=== PATIENT | male | born 1940 | race Caucasian/White ===

== ENCOUNTER 2019-09-06 09:38 | Inpatient (IN) | payer MEDICARE, MEDICAID ==
--- NOTE | 2019-09-06 10:49 | RAD ---
Portable chest: HISTORY: Chest pain COMPARISON: none FINDINGS: Lung martinez are clear. Heart and mediastinum appear unremarkable. Vascularity is normal. C alcified right hilar lymph nodes. Calcified granuloma in the peripheral right lung. Visualized osseous structures unremarkable. IMPRESSION: No acute finding
[2019-09-06 10:53] LABS: #Basophils 0.1 thou/uL (0.0-0.2); #Eosinphils 0.3 thou/uL (0.0-0.7); #Lymphocytes 3.3 thou/uL (1.20-3.40); #Neutrophils 6.3 thou/uL (1.40-6.50); %Eosinophils 2.4 % (0.0-10.0); %Lymphocytes 30.2 % (21.0-51.0); %Monocytes 9.2 % (0.0-10.0); %Neutrophils 57.1 % (42.0-75.0); Hemoglobin 11.7 g/dL (14.0-18.0); Mean Corpuscular Volume 90.3 fL (78.0-98.0); Mean Platelet Volume 7.2 fL (7.4-10.4); Platelet Count 318 thou/uL (130-400); RBC Distribution Width 12.9 % (11.5-14.5); Red Blood Cell (RBC) Count 4.18 mill/uL (4.70-6.10)
[2019-09-06 11:15] LABS: ALT (SGPT) 8 U/L (8-55); AST (SGOT) 19 U/L (5-34); Albumin 4.5 g/dL (3.4-4.8); Alkaline Phosphatase 77 U/L (40-110); Anion Gap 15 mmol/L (10-20); BUN (Urea Nitrogen) 14 mg/dL (8.4-25.7); Bilirubin, Total 0.5 mg/dL (0.2-1.2); Calc. Creatinine Clearance 0 mL/min (70-130); Calcium 9.4 mg/dL (7.8-10.44); Carbon Dioxide 22 mmol/L (23-31); Chloride 107 mmol/L (98-107); Estimated GFR-MDRD 57; Glucose 98 mg/dL (83-110); Lipase 7 U/L (8-78); Magnesium 2.6 mg/dL (1.6-2.6); Potassium 4.3 mmol/L (3.5-5.1); Protein, Total 7.5 g/dL (5.8-8.1); Sodium 140 mmol/L (136-145)
[2019-09-06] MEDS ORDERED: Aspirin Chewable 81 MG TAB ONE (12:44)
[2019-09-06 13:03] LABS: Bilirubin Negative (Negative); Blood, Urine Negative (Negative); Clarity Clear (Clear); Glucose, Urine (Dipstick) Normal (Negative); Leukocyte Negative Leu/uL (Negative); Nitrite Negative (Negative); Protein, Urine (Dipstick) 10 mg/dL (Neg-Trace); Urobilinogen Normal mg/dL (Less than 2)
[2019-09-06 14:32] LABS: Troponin I Less than 0.010 ng/mL (< 0.028)
[2019-09-06] MEDS ORDERED: Enoxaparin Sodium 80 MG/0.8 ML SYRINGE SC SCH (15:00)
[2019-09-06 17:23] LABS: Troponin I Less than 0.010 ng/mL (< 0.028)
[2019-09-06] MEDS: Pantoprazole 40 MG VIAL IVP SCH (20:33)
--- NOTE | 2019-09-06 21:03 | HP ---
CHIEF COMPLAINT: Dysphagia. HISTORY OF PRESENT ILLNESS: This patient is an 79-year-old male with a 2-month history of dysphagia. He has seen Dr. Westbrook as an outpatient. There was anticipation that he would undergo endoscopy on the . The patient has stopped his Plavix today in anticipation of that. He continued to have worsening symptoms, was unable to take his medications last night. Therefore, he made a phone call today. Dr. Sanchez was covering for Dr. Westbrook and apparently, there might have been some miscommunication. The patient was under the impression that he was told to come to the emergency department and his endoscopy could be performed right away. Apparently, ER doctor talked to Dr. Sanchez and he indicated that was not the case, that the plan was for him to continue to follow up as an outpatient as previously planned on . Nonetheless, on arrival, the patient was found to be in atrial fibrillation. He states that he has lost significant amount of weight related to his dysphagia. In fact, he was seen on the in Dr. Westbrook's office and since then he has lost another 11 pounds. The patient does report that he has had some discomfort in the left chest just below the left breast that seems to be worse when he is trying to swallow, that seems to be better here today. He is unaware of any palpitations or other chest pains or significant shortness of breath. REVIEW OF SYSTEMS: Other than the weight loss, all other systems were reviewed and all pertinent positives and negatives noted in the HPI. PAST MEDICAL HISTORY: Notable for coronary artery disease, followed by Dr. Nick Ferrari. He sees him at least every 6 months. He has peripheral arterial disease and he has a heart murmur, hypertension, and hyperlipidemia. PAST SURGICAL HISTORY: Peripheral stents x5. Apparently had an intravascular aortic aneurysm repair performed at the iliac bifurcation area. FAMILY HISTORY: Mother of cancer. She apparently had several different types over the years and father had advanced dementia. SOCIAL HISTORY: The patient previously smoked a pack and half cigarettes per day. Quit in 2008. Still has an occasional beer. Denies drugs. He is single, but has a female partner. He is full code and his partner, Mahnaz would be his surrogate decision maker should that become necessary. ALLERGIES: NONE. MEDICATIONS: 1. Amlodipine 10 mg daily. 2. Benazepril 10 mg daily. 3. Plavix 75 mg daily. 4. Dexilant 30 mg daily. 5. Ezetimibe 10 mg daily. 6. Atorvastatin 80 mg daily. 7. Terbinafine 250 mg daily. 8. Aspirin 81 mg daily. 9. [place]-3 fish oil one tablet p.o. b.i.d. PHYSICAL EXAMINATION: VITAL SIGNS: BP 125/78, pulse 65, respirations 18, temperature 97.9, O2 saturation 95% on room air. GENERAL APPEARANCE: Age-appropriate male, in no distress. He is awake, alert, oriented, pleasant, cooperative. HEART: Regular rate and rhythm. No murmurs, gallops, or rubs. LUNGS: Clear to auscultation bilaterally. Good chest wall expansion or exchange. ABDOMEN: Soft, nontender, and nondistended. Positive bowel sounds. No masses. No organomegaly. EXTREMITIES: No cyanosis, clubbing, or edema. PSYCHIATRIC: Normal affect and behavior. NEUROLOGIC: Spontaneous movement in all extremities. Cranial nerves intact. Cognitively intact. LABORATORY DATA: White count 11.0, hemoglobin 11.7, platelets 318. Sodium 140, potassium 4.3, chloride 107, CO2 of 22, BUN 14, creatinine 1.23, glucose 98, calcium 9.4, magnesium 2.6, total bilirubin 0.5, AST 19, ALT 8, and alkaline phosphatase 77. Troponin 0.01, subsequent 0.01. Albumin 4.5, lipase 7. TSH 0.8365. Urinalysis negative. Chest x-ray is negative. EKG shows atrial fibrillation with controlled ventricular response. IMPRESSION AND PLAN: 1. New onset atrial fibrillation in a patient who is completely asymptomatic and unaware. He appears to have good rate control and it is unclear when his onset might have been. Therefore, we will go ahead and give him some Lovenox now. I will not start him on any longer-acting anticoagulation in light of the concern for the dysphagia and weight loss. 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 Ferrari. 2. Dysphagia with weight loss. The patient likely does need endoscopy. The plan was to do this on and that may still be a reasonable plan. However, at this point, the patient need to be on anticoagulation, therefore that may necessitate expediting the endoscopy so that he can be released to be on appropriate anticoagulation for the atrial fibrillation. GI is consulted. We will keep him on PPI and again we will need to coordinate this with Cardiology and GI. 3. Hypertension. Continue usual home medications. 4. Hyperlipidemia. Continue with his home medications. Job ID: [id number]
--- NOTE | 2019-09-07 00:44 | CON ---
DATE OF CONSULTATION: 09/06/2019 REASON FOR CONSULTATION: Dysphagia, weight loss. HISTORY OF PRESENT ILLNESS: Mr. Shukri Maddox is a very pleasant 79-year-old male with history of hypertension, hyperlipidemia. The patient is known to have peripheral vascular disease and has seen Dr. Ferrari in the past. He has had bilateral lower extremity stent placement. He is on Plavix. He also tells me he has had an abdominal aortic aneurysm and has had a stent placement by Dr. Ferrari in the past. The patient has no history of coronary artery disease. He tells me his heart was checked by Dr. Ferrari and there is no history of any coronary artery disease. The patient developed dysphagia approximately 2 months ago. The dysphagia is to solid food mostly. He also has some painful swallowing when the food gets stuck in the esophagus. At that time, he drank water to make it go down. At that time, the water does not go down, it keeps coming up. He has had some regurgitation when the food gets stuck. To begin with, he has difficulty swallowing meat and bread. Subsequently he has some difficulty swallowing all kind of solid food. Most recently, his dysphagia slowly progressed where he cannot even swallow at times water. The patient called me this morning saying that he is having increase in difficulty swallowing and that time he cannot even swallow pills and not able to drink water. He was advised to come to the ER. The patient used to weigh around 203 pounds 3 or 4 months ago. Now his weight is down to 170 pounds in the ER. There is no history of fever. No history of hematochezia or any melena. Bowel movements are fairly regular. The patient tells me an episode of coughing up blood and subsequently also threw up some blood 3 months ago. He called his primary care doctor, Dr. Pina. He was advised to go to the ER, but the patient did not go to the ER. The patient had no recurrence of symptoms afterwards. He has no relevant history. ALLERGIES: NONE. SOCIAL HISTORY: He is a former smoker. Quit smoking, I believe, about 12 years ago. Drinks alcohol socially, mostly beer. Does not drink or use hard liquor. No history of drug abuse. MEDICAL ILLNESSES: 1. Hypertension. 2. Hyperlipidemia. 3. Peripheral vascular disease. 4. History of AAA, status post stent placement. 5. No history of any COPD. 6. No diabetes. 7. No TIA. PAST SURGICAL HISTORY: No major surgeries for the peripheral artery stent placement. FAMILY HISTORY: Mother had some cancer, site is unknown. Otherwise, family history is totally unremarkable. MEDICATION LIST: Reviewed. REVIEW OF SYSTEMS: 10 point system review; CONSTITUTIONAL: History of weight loss over the last 3 months. His energy level is good. Does not have any fever or chills. His exercise tolerance is pretty good except for intermittent claudication. Usually it is after walking 100 yards, he started having some pain in the calf muscles. HEAD: No chronic headache. No dizziness. EYES: No diplopia. No impaired vision. EARS: No hearing loss. NOSE: No nosebleed. THROAT: No sore throat. NECK: No stiffness or any limitation of movement. LUNGS: No chronic coughing, hemoptysis, dyspnea. CARDIOVASCULAR SYSTEM: No palpitation. No chest pain. No dyspnea, orthopnea, PND. GI: Dysphagia, weight loss. History of 1 episode of hematemesis, I believe, 3 months ago and was advised to go to the ER, but he did not go to the ER. : No dysuria, hematuria. MUSCULOSKELETAL/NEUROENDOCRINE: Nonrelevant. HEMATOLOGICAL: Nonrelevant. PHYSICAL EXAMINATION: GENERAL: He appears very comfortable. He is in no distress. He is awake, alert, and communicative. VITAL SIGNS: Stable. Pulse is 76 and irregular. The EKG done in the ER showed atrial fibrillation which is new onset. Temperature 97.7 degrees Fahrenheit, pulse is 72, and blood pressure 145/67. HEENT: Conjunctivae clear. NECK: Supple. No adenitis or thyromegaly noted. CARDIOVASCULAR SYSTEM: First and second heart sounds heard. LUNGS: Clear to auscultation. ABDOMEN: Soft. Abdomen is nontender. No organomegaly. No masses. Bowel sounds normal. EXTREMITIES: Reveal no edema. LABORATORY DATA: CBC; WBC 11,000; hemoglobin 11.7; hematocrit 37.8; MCV 90.3; platelet count 318,000; polymorphs 57; lymphocytes 30. Chemistries; chem 7 is normal, BUN is 14, creatinine 1.23, glucose 98, calcium 9.4, magnesium 2.6, bilirubin 0.5, AST 19, ALT 8, alkaline phosphatase 77, albumin is 4.5, globulin 3, lipase 7, troponin 0.8365. EKG; atrial fibrillation with slow rate. No acute ischemic changes. CLINICAL IMPRESSION: 1. An 79-year-old male with dysphagia, weight loss. The symptoms started approximately 2 months ago. The symptoms are getting progressively worse. He also has history of weight loss. He had 1 episode of hematemesis over 3 months ago, but he did not seek any medical advice at that time. The patient most likely has a malignancy to explain the dysphagia and weight loss. It is also possible to have benign stricture. However, the weight loss is somewhat worrisome. 2. Hypertension. 3. Hyperlipidemia. 4. Peripheral vascular disease, status post stent placement. 5. History of abdominal aortic aneurysm. 6. New-onset atrial fibrillation. RECOMMENDATIONS: 1. Full liquid diet. 2. IV fluids. 3. We will hold on the Plavix for the next 3 days. My plan was for an EGD today but unfortunately he has been on Plavix until yesterday. We will hold on the Plavix and hopefully an EGD can be done in the next [address] Westbrook is primary marketing communications associate and let Dr. Westbrook know about inpatient stay. Dr. Westbrook will assume care from tomorrow. Job ID: [id number]
[2019-09-07] MEDS: Lisinopril 10 MG TAB PO SCH (08:46)
[2019-09-07] MEDS: Amlodipine 10 MG TAB PO SCH (08:46)
[2019-09-07] MEDS: Pantoprazole 40 MG VIAL IVP SCH ×2 (08:55→20:58)
--- NOTE | 2019-09-07 19:05 | PRG ---
DATE OF SERVICE: 09/07/2019 SUBJECTIVE: Mr. Maddox is tolerating liquids. OBJECTIVE: VITAL SIGNS: Temperature is 98, blood pressure 112/57. ABDOMEN: Nontender. LABORATORY DATA: None today. ASSESSMENT: Dysphagia and weight loss. He had outpatient endoscopy and colonoscopy scheduled for this , he came in as he was having more weight loss and seems that concerns about atrial fibrillation that are being addressed now and the family indicates this is stable as do the nurses. RECOMMENDATIONS: Continue to hold Plavix. If he stays in the hospital, we can perform his EGD and colonoscopy on Saturday when he has been off the Plavix for 3 days. If they let him to go home tomorrow in someway, he is scheduled as an outpatient on at the office and we can keep that scheduled as well. Dr. Westbrook's will be back tomorrow. Job ID: [id number]
[2019-09-07] MEDS ORDERED: Sodium Chloride 0.9% 10 ML ONE (20:21)
[2019-09-07] MEDS: Enoxaparin Sodium 80 MG/0.8 ML SYRINGE SC SCH (20:58)
--- NOTE | 2019-09-07 21:40 | PDOC.HOSPP ---
- Subjective Subjective: Doing well. No complaints. - Objective Vital Signs & Weight: Vital Signs (12 hours) Temp Pulse Resp BP Pulse Ox 09/07/19 20:00 97.8 F 67 20 120/67 97 09/07/19 15:07 97.6 F 71 19 125/57 L 99 09/07/19 11:03 96.6 F L 70 17 140/77 97 Weight Admit Weight 175 lb 8.96 oz Weight 175 lb 8.96 oz I&O: 09/06/19 09/07/19 09/08/19 06:59 06:59 06:59 Intake Total 240 1020 Output Total 0 600 Balance 240 420 Result Diagrams: 09/06/19 10:32 09/06/19 10:32 Hospitalist ROS - Medication Medications: Active Medications Generic Name Dose Route Start Last Admin Trade Name Freq PRN Reason Stop Dose Admin Amlodipine Besylate 10 mg 09/07/19 09:00 09/07/19 08:46 Norvasc PO Not Given DAILY SANDOR Enoxaparin Sodium 80 mg 09/07/19 21:00 09/07/19 20:58 Lovenox SC 80 mg 0900,2100 SANDOR Administration Lisinopril 10 mg 09/07/19 09:00 09/07/19 08:46 Zestril PO Not Given DAILY SANDOR Pantoprazole Sodium 40 mg 09/06/19 21:00 09/07/19 20:58 Protonix IVP 40 mg Q12HR SANDOR Administration - Exam General Appearance: NAD, awake alert Neck: supple, symmetric, no JVD, no thyromegaly, no lymphadenopathy, no carotid bruit Heart: RRR, no murmur, no gallops, no rubs, normal peripheral pulses Respiratory: CTAB, no wheezes, no rales, no ronchi, normal chest expansion, no tachypnea, normal percussion Gastrointestinal: soft, non-tender, non-distended, normal bowel sounds, no palpable masses, no hepatomegaly, no splenomegaly, no bruit Extremities: no cyanosis, no clubbing, no edema Skin: normal turgor, no lesions, no rashes Musculoskeletal: normal tone, normal strength, no muscle wasting Psychiatric: normal affect, normal behavior, A&O x 3 Hosp A/P (1) Atrial fibrillation Code(s): I48.91 - UNSPECIFIED ATRIAL FIBRILLATION Status: Acute (2) Esophageal dysphagia Code(s): R13.10 - DYSPHAGIA, UNSPECIFIED Status: Acute (3) PAD (peripheral artery disease) Code(s): I73.9 - PERIPHERAL VASCULAR DISEASE, UNSPECIFIED Status: Acute - Plan Doing ok. Full liquid diet per GI. Continue Lovenox. GI following. Discussed with Dr. Ferrari. Has had a hearth cath. No indication for additional work up of the afib. Good rate control. Could consider OP Lovenox and endoscopy as OP. Otherwise, will have the scope on Satn. Once the scope is done, he can go to [facility] barring a contra-indicaiton on scope.
[2019-09-08] MEDS ORDERED: Sodium Chloride 0.9% 10 ML ONE (07:34)
[2019-09-08] MEDS: Enoxaparin Sodium 80 MG/0.8 ML SYRINGE SC SCH ×2 (08:51→20:20)
[2019-09-08] MEDS: Lisinopril 10 MG TAB PO SCH (08:52)
[2019-09-08] MEDS: Amlodipine 10 MG TAB PO SCH (08:52)
[2019-09-08] MEDS: Pantoprazole 40 MG VIAL IVP SCH ×2 (08:52→20:20)
--- NOTE | 2019-09-08 12:53 | PRG ---
DATE OF SERVICE: 09/08/2019 SUBJECTIVE: Mr. Maddox is doing well. Continues to complain of dysphagia. He is on a liquid diet today. No other new events. OBJECTIVE: VITAL SIGNS: Temperature 97.9, pulse 67, blood pressure 121/62, and 98% oxygen saturation on room air. GENERAL: In no acute distress. HEART: Regular rate and rhythm. LUNGS: Clear to auscultation bilaterally. ABDOMEN: Soft, nontender to palpation. EXTREMITIES: No peripheral edema. LABORATORY STUDIES: WBC 11.0, hemoglobin 11.7, platelets 318. ASSESSMENT AND PLAN: 1. Dysphagia. 2. Weight loss. The patient's Plavix is being held. We discussed again broad differential for dysphagia, but with the weight loss, I am concerned for possible malignancy. We will go ahead and plan for esophagogastroduodenoscopy and colonoscopy this admission. Administer bowel preparation this evening, and plan for procedure tomorrow. Depending on findings, we may potentially perform esophageal dilation. Job ID: [id number]
--- NOTE | 2019-09-08 14:13 | PDOC.HOSPP ---
- Subjective Encounter Date: 09/08/19 Encounter Time: 14:11 Subjective: Doing well. He has seen Dr. Westbrook. Plan is to get bowel prep tonight and scope tomorrow. - Objective Vital Signs & Weight: Vital Signs (12 hours) Temp Pulse Resp BP Pulse Ox 09/08/19 11:06 97.9 F 67 16 121/62 98 09/08/19 07:11 98 F 66 16 140/66 98 09/08/19 03:32 97.7 F 86 12 118/78 98 Weight Admit Weight 175 lb 8.96 oz Weight 170 lb I&O: 09/07/19 09/08/19 09/09/19 06:59 06:59 06:59 Intake Total 240 1340 Output Total 0 1350 Balance 240 -10 Result Diagrams: 09/06/19 10:32 09/06/19 10:32 Hospitalist ROS - Medication Medications: Active Medications Generic Name Dose Route Start Last Admin Trade Name Freq PRN Reason Stop Dose Admin Amlodipine Besylate 10 mg 09/07/19 09:00 09/08/19 08:52 Norvasc PO 10 mg DAILY SANDOR Administration Enoxaparin Sodium 80 mg 09/07/19 21:00 09/08/19 08:51 Lovenox SC 80 mg 0900,2100 SANDOR Administration Lisinopril 10 mg 09/07/19 09:00 09/08/19 08:52 Zestril PO 10 mg DAILY SANDOR Administration Pantoprazole Sodium 40 mg 09/06/19 21:00 09/08/19 08:52 Protonix IVP 40 mg Q12HR SANDOR Administration - Exam General Appearance: NAD, awake alert Heart: RRR, no murmur, no gallops, no rubs, normal peripheral pulses Respiratory: CTAB, no wheezes, no rales, no ronchi, normal chest expansion, no tachypnea, normal percussion Gastrointestinal: soft, non-tender, non-distended, normal bowel sounds, no palpable masses, no hepatomegaly, no splenomegaly, no bruit Extremities: no cyanosis, no clubbing, no edema Skin: normal turgor, no lesions, no rashes Neurological: cranial nerve grossly intact, normal sensation to touch, no weakness, no focal deficits, no new deficit Musculoskeletal: normal tone, normal strength, no muscle wasting Psychiatric: normal affect, normal behavior, A&O x 3 Hosp A/P (1) Atrial fibrillation Code(s): I48.91 - UNSPECIFIED ATRIAL FIBRILLATION Status: Acute (2) Esophageal dysphagia Code(s): R13.10 - DYSPHAGIA, UNSPECIFIED Status: Acute (3) PAD (peripheral artery disease) Code(s): I73.9 - PERIPHERAL VASCULAR DISEASE, UNSPECIFIED Status: Acute - Plan Doing ok. Full liquid diet per GI. Continue Lovenox. GI following. Bowel prep tonight. Scopes tomorrow. Discussed with Dr. Ferrari. Has had an echo. No indication for additional work up of the afib. Good rate control. Once the scope is done, he can go to [facility] barring a contra-indicaiton on scope.
[2019-09-08] MEDS ORDERED: GoLYTELY 4,000 ml Bottle PO SCH (18:00)
[2019-09-09] MEDS ORDERED: Lidocaine 1% PF 5 ML VIAL ONE (09:15)
[2019-09-09] MEDS ORDERED: PROPOFOL 200 MG/20 ML VIAL ONE (09:15)
[2019-09-09] MEDS ORDERED: Ondansetron HCl/PF 4 MG/2 ML Vial IVP PRN (11:31)
[2019-09-09] MEDS ORDERED: Promethazine HCl 25 MG/ML VIAL SLOW IVP PRN (11:31)
[2019-09-09] MEDS ORDERED: Promethazine HCl 25 MG/ML VIAL IM PRN (11:31)
--- NOTE | 2019-09-09 11:54 | OP ---
DATE OF PROCEDURE: 09/09/2019 RECONCILER SURGEON: None. PROCEDURES PERFORMED: 1. Esophagogastroduodenoscopy with biopsies. 2. Colonoscopy, diagnostic. INDICATIONS: 1. Hematemesis. 2. Dysphagia. 3. Unintentional weight loss. 4. Epigastric pain. MEDICATIONS: See Anesthesia record. FINDINGS: After discussion of the risks, benefits, and alternatives of the procedure, informed consent was obtained and witnessed. Pre-endoscopic cardiopulmonary examination was satisfactory. Time-out was performed before sedation was achieved. Sedation was achieved with Anesthesia assistance in the endoscopy unit. A Pentax adult upper endoscope was placed into the oropharynx and passed through the cricopharyngeus under direct visualization. The proximal and mid esophageal mucosa appeared normal; however, in the distal esophagus, there was a circumferential friable mass, which does appear malignant. There was associated stricture of the esophageal lumen with this circumferential mass. The endoscope does pass beyond it with some difficulty. In the esophagus, the mass extended from [address] to the GE junction at 45 cm circumferentially, and upon passage of the scope into the stomach, the mass was seen extending down the wall of the gastric fundus as well. Photodocumentation was obtained with forward and retroflexed views. The mass does involve a significant portion of the gastric fundus as well as the distal esophagus. The remainder of the gastric mucosa appeared normal. The endoscope was passed through the pylorus and into the first and second portions of the duodenum, which appeared normal. I obtained multiple biopsies from the gastric portion of the mass as well as the esophageal portion of the mass for histology. The upper endoscope was completely withdrawn and the patient was repositioned. Digital rectal exam was performed, which showed some external hemorrhoidal skin tags. A Pentax adult colonoscope was inserted into the anus and passed forward to the cecum in the usual fashion. The cecal base was identified by the appendiceal orifice as well as the ileocecal valve. The terminal ileum was intubated and the ileal mucosa appeared normal. The colonoscope was slowly withdrawn in a gradual circumferential manner with careful examination of the entire colonic mucosa. The quality of the prep was adequate. The colonic mucosa appeared normal throughout. There were no polyps or mass lesions visualized. There was diverticulosis scattered throughout the colon. Retroflexion in the rectum demonstrated internal hemorrhoids. The colonoscope was completely withdrawn and the patient allowed to recover. The patient tolerated the procedure well. There were no immediate postprocedure complications. IMPRESSION: 1. 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 Biopsies taken from the gastric and esophageal portions of the mass. 2. Otherwise normal esophagogastroduodenoscopy. 3. Colonic diverticulosis. 4. Internal hemorrhoids. RECOMMENDATIONS: 1. Liquid diet. 2. Follow up pathology results on the biopsies. I do expect that this will represent malignancy. 3. We will obtain CT of the chest, abdomen, and pelvis for staging. 4. If pathology confirms malignancy, get Oncology consultation. 5. The patient will also probably benefit from multidisciplinary surgical consultation depending on CT findings. Job ID: [id number]
[2019-09-09] MEDS: Pantoprazole 40 MG VIAL IVP SCH ×2 (12:31→20:14)
[2019-09-09] MEDS: Enoxaparin Sodium 80 MG/0.8 ML SYRINGE SC SCH ×2 (12:31→20:14)
[2019-09-09] MEDS ORDERED: Iopamidol 370 76% 100 ML VIAL ONE (13:40)
--- NOTE | 2019-09-09 15:09 | CT ---
CT OF THE CHEST, ABDOMEN AND PELVIS WITH IV CONTRAST INDICATION: History of distal esophageal mass COMPARISON: None FINDINGS: CHEST: Lungs: There is moderate scattered emphysema. No suspicious pulmonary nodule is demonstrated. Pleural space: No effusion. Mediastinum: There is a small hiatal hernia. There is an irregular, near circumferential soft tissue mass that involves the full-thickness of the distal esophageal wall on image 47 series 2 consistent with distal esophageal malignancy. There is reticulation and inflammatory change in the surrounding p osterior mediastinal fat. There are small paraesophageal lymph nodes seen on image 44 series 2 to the left aspect of the distal esophagus. There is a large right paraesophageal lymph node within the posterior mediastinal image 42 of series 2 measuring 1.2 cm. There are moderate calcified involving coronary artery and thoracic aorta. Axilla: No pathologically enlarged lymph nodes. ABDOMEN: Lung bases: There is a calcified granuloma in the right lower lobe Liver: There is a hypodense lesion measuring 1 cm within segment 5 of the right hepatic lobe on image 66 of series 2. There is a focus of enhancement measuring 7.5 mm within segment 6 of the right hepatic lobe on image 74 series 2. Gallbladder: Cholelithiasis Pancreas: Normal. Adrenal glands: Normal. Spleen: Calcified granuloma Kidneys and ureters: There are bilateral renal cysts. The largest cyst is seen extending exophyticall y off the left mid kidney measuring 7.3 cm. Largest cyst within the right kidney is seen within the right mid kidney measuring 2.1 cm. No hydronephrosis is evident. . Vasculature: There is an aorto by iliac endograft stent. There is excluded aneurysmal sac involving t he infrarenal abdominal aorta measuring 4.3 cm Lymph nodes:No lymphadenopathy. Free fluid in abdomen:No free fluid is evident. PELVIS: Small and large bowel: There are scattered colonic diverticula without evidence of active diverticuli tis. Small bowel is of normal caliber. Appendix:Normal Bladder: Normal. Rectal and perirectal soft tissues:Normal. Reproductive structures: The prostate is enlarged measuring 5.2 cm. Free fluid in pelvis: No free fluid is evident. Lymphadenopathy pelvis: No lymphadenopathy is evident. Osseous structures: There are bilateral pars defects at L5. There is scattered degenerative and oste oarthritic changes. There are healed fractures seen posterolaterally involving the right ninth through 12th ribs. Soft tissues:Normal. IMPRESSION: 1. Large circumferential mass of the distal esophagus with likely transmural involvement and associat ed adjacent malignant lymphadenopathy. 2. Moderate emphysema. No evidence to suggest metastatic disease to the lungs. 3. Small hypodense lesion within segment 5 the right hepatic lobe is difficult characterize due to it s size; however, in light of the patient's known distal esophageal mass, early metastatic lesion is of concern. Continued surveillance of this lesion is recommended. A follow-up CT the abdomen in 4-6 w eeks with and without contrast is recommended for additional characterization and to document stability. There is a small flash filling lesion within segment 6 of the right hepatic lobe which is more suspicious for small vascular anomaly or capillary hemangioma. 4. No overt evidence suggest metastatic disease to the abdomen and pelvis. 5. No evidence to suggest osteoblastic or osteolytic metastatic disease
[2019-09-09] MEDS: Lisinopril 10 MG TAB PO SCH (15:37)
[2019-09-09] MEDS: Amlodipine 10 MG TAB PO SCH (15:38)
[2019-09-09 17:36] VITALS: BMI 23.7
--- NOTE | 2019-09-09 20:23 | PDOC.HOSPP ---
- Subjective Subjective: Doing ok. TOlerated the EGD well. Had some difficulty drinking the contrast for the CT. - Objective Vital Signs & Weight: Vital Signs (12 hours) Temp Pulse Resp BP Pulse Ox 09/09/19 20:07 98.1 F 89 16 115/70 96 09/09/19 15:33 97.8 F 92 18 128/84 96 09/09/19 11:50 97.4 F L 74 16 124/57 L 97 09/09/19 08:35 98.2 F 75 18 141/65 H 99 Weight Admit Weight 175 lb 8.96 oz Weight 170 lb I&O: 09/08/19 09/09/19 09/10/19 06:59 06:59 06:59 Intake Total 1340 4450 1700 Output Total 0361 798 3679 Balance -10 3525 500 Result Diagrams: 09/06/19 10:32 09/06/19 10:32 Hospitalist ROS - Medication Medications: Active Medications Generic Name Dose Route Start Last Admin Trade Name Freq PRN Reason Stop Dose Admin Amlodipine Besylate 10 mg 09/07/19 09:00 09/09/19 15:38 Norvasc PO 10 mg DAILY SANDOR Administration Enoxaparin Sodium 80 mg 09/07/19 21:00 09/09/19 20:14 Lovenox SC Not Given 0900,2100 [facility] Lisinopril 10 mg 09/07/19 09:00 09/09/19 15:37 Zestril PO 10 mg DAILY SANDOR Administration Pantoprazole Sodium 40 mg 09/06/19 21:00 09/09/19 20:14 Protonix IVP 40 mg Q12HR SANDOR Administration - Exam General Appearance: NAD, awake alert Neck: supple, symmetric, no JVD, no thyromegaly, no lymphadenopathy, no carotid bruit Heart: RRR, no murmur, no gallops, no rubs, normal peripheral pulses Respiratory: CTAB, no wheezes, no rales, no ronchi, normal chest expansion, no tachypnea, normal percussion Gastrointestinal: soft, non-tender, non-distended, normal bowel sounds, no palpable masses, no hepatomegaly, no splenomegaly, no bruit Extremities: no cyanosis, no clubbing, no edema Musculoskeletal: normal tone Hosp A/P (1) Atrial fibrillation Code(s): I48.91 - UNSPECIFIED ATRIAL FIBRILLATION Status: Acute (2) Esophageal dysphagia Code(s): R13.10 - DYSPHAGIA, UNSPECIFIED Status: Acute (3) PAD (peripheral artery disease) Code(s): I73.9 - PERIPHERAL VASCULAR DISEASE, UNSPECIFIED Status: Acute - Plan Doing ok. Full liquid diet per GI. Continue Lovenox. Distal esophageal mass highly suspicious for cancer. CT chest abd. pelvis pending. Discussed with Dr. Ferrari. Has had an echo. No indication for additional work up of the afib. Good rate control. Will keep him on Lovenox for now. He is not able to swallow pills now. Not likely a surgical situation, but may need enteral feeding tube. Will likely need to get an early path report and get Onc involved early. Will need early intervention or PEG.
[2019-09-10] MEDS: Enoxaparin Sodium 80 MG/0.8 ML SYRINGE SC SCH ×2 (09:20→21:29)
[2019-09-10] MEDS: Amlodipine 10 MG TAB PO SCH (09:21)
[2019-09-10] MEDS: Lisinopril 10 MG TAB PO SCH (09:21)
[2019-09-10] MEDS: Pantoprazole 40 MG VIAL IVP SCH ×2 (09:21→21:29)
--- NOTE | 2019-09-10 11:39 | PDOC.HOSPP ---
- Subjective Subjective: Doing ok. Has been able to get some Ensure in and today some cream of wheat. - Objective Vital Signs & Weight: Vital Signs (12 hours) Temp Pulse Resp BP Pulse Ox 09/10/19 09:14 98.0 F 74 16 114/67 98 09/10/19 03:37 97.8 F 77 17 110/57 L 99 Weight Admit Weight 175 lb 8.96 oz Weight 170 lb I&O: 09/09/19 09/10/19 09/11/19 06:59 06:59 06:59 Intake Total 4450 2060 Output Total 925 1200 Balance 3525 860 Result Diagrams: 09/06/19 10:32 09/06/19 10:32 Hospitalist ROS - Medication Medications: Active Medications Generic Name Dose Route Start Last Admin Trade Name Freq PRN Reason Stop Dose Admin Amlodipine Besylate 10 mg 09/07/19 09:00 09/10/19 09:21 Norvasc PO 10 mg DAILY SANDOR Administration Enoxaparin Sodium 80 mg 09/07/19 21:00 09/10/19 09:20 Lovenox SC 80 mg 0900,2100 SANDOR Administration Lisinopril 10 mg 09/07/19 09:00 09/10/19 09:21 Zestril PO 10 mg DAILY SANDOR Administration Pantoprazole Sodium 40 mg 09/06/19 21:00 09/10/19 09:21 Protonix IVP 40 mg Q12HR SANDOR Administration - Exam General Appearance: NAD, awake alert Heart: RRR, no gallops, no rubs, normal peripheral pulses, II/IV Respiratory: CTAB, no wheezes, no rales, no ronchi, normal chest expansion, no tachypnea, normal percussion Gastrointestinal: soft, non-tender, non-distended, normal bowel sounds, no palpable masses, no hepatomegaly, no splenomegaly, no bruit Skin: normal turgor, no lesions, no rashes Musculoskeletal: normal tone, normal strength, no muscle wasting Psychiatric: normal affect, normal behavior, A&O x 3 Hosp A/P (1) Stomach cancer Status: Acute (2) Atrial fibrillation Code(s): I48.91 - UNSPECIFIED ATRIAL FIBRILLATION Status: Acute (3) Esophageal dysphagia Code(s): R13.10 - DYSPHAGIA, UNSPECIFIED Status: Acute (4) PAD (peripheral artery disease) Code(s): I73.9 - PERIPHERAL VASCULAR DISEASE, UNSPECIFIED Status: Acute - Plan Biopsy confirmed adenocarcinoma. Lloyd stomach cancer. CT with lympha Doing ok. Full liquid diet per GI. Continue Lovenox. Discussed with Dr. Ferrari. Has had an echo. No indication for additional work up of the afib. Good rate control. Will keep him on Lovenox for now. He is not able to swallow pills now. Not likely a surgical situation, but may need enteral feeding tube. Discussed briefly with Beverly Proctor. Will not likely see an significant improvement for weeks.
--- NOTE | 2019-09-10 12:37 | PRG ---
DATE OF SERVICE: 09/10/2019 SUBJECTIVE: Mr. Maddox is doing okay. He is tolerating his liquid diet. No significant discomfort today. No fever. No other new events. OBJECTIVE: VITAL SIGNS: Temperature 98.0, pulse 74, blood pressure 114/67, 98% oxygen saturation on room air. GENERAL: No acute distress. Sitting up in bed comfortably. HEART: Regular rate and rhythm. LUNGS: Clear to auscultation bilaterally. ABDOMEN: Soft. Nontender to palpation. EXTREMITIES: No peripheral edema. LABORATORY STUDIES: No new labs today. IMAGING STUDIES: CT of the chest, abdomen, and pelvis from yesterday demonstrated full-thickness near circumferential mass in the distal esophageal wall consistent with malignancy. There are reticulation and inflammatory change in the surrounding posterior mediastinal fat as well as enlarged paraesophageal lymph nodes measuring up to 1.2 cm. There is a 1 cm lesion in the right hepatic lobe, which is indeterminate. A smaller focus of enhancement in the right hepatic lobe, which is more likely a hemangioma. There is cholelithiasis. There is no intra- abdominal or pelvic lymphadenopathy. He has moderate emphysema. No overt evidence to suggest metastatic disease to the chest, abdomen, or pelvis, but there does appear to be adjacent malignant lymphadenopathy in the region of the mass. Pathology report has come back confirming adenocarcinoma. ASSESSMENT AND PLAN: 1. Adenocarcinoma involving the distal esophagus, gastroesophageal junction, and gastric fundus. 2. Dysphagia, secondary to mass effect from adenocarcinoma. I had a long discussion with the patient as well as with Dr. Chirinos. Biopsies confirm adenocarcinoma, and the CT scan suggests at least stage III disease. Given the patient's age and comorbidities, he will probably not be a surgical candidate, so prognosis is fairly poor. Oncology evaluation is pending. With regard to the patient's symptoms and nutrition, I do think it would be a good idea to provide enteral nutrition. I discussed that whether or not he proceeds with any aggressive therapy for the cancer, he would likely benefit from PEG placement at least from a nutritional standpoint. The patient expresses understanding, but would still like some more time to think over whether he wants to proceed with PEG placement or not. Please let us know anytime if the patient decides that he wants to proceed with PEG placement. Feel free to call back anytime with any other questions or concerns. Job ID: [id number] [facility]
[2019-09-11 06:43] LABS: #Basophils 0.1 thou/uL (0.0-0.2); #Eosinphils 0.2 thou/uL (0.0-0.7); #Lymphocytes 3.2 thou/uL (1.20-3.40); #Monocytes 0.9 thou/uL (0.11-0.59); #Neutrophils 4.2 thou/uL (1.40-6.50); %Basophils 1.3 % (0.0-1.0); %Eosinophils 2.3 % (0.0-10.0); %Lymphocytes 37.1 % (21.0-51.0); %Neutrophils 49.3 % (42.0-75.0); Hemoglobin 10.2 g/dL (14.0-18.0); Mean Corpuscular HGB CONC 31.4 g/dL (32.0-36.0); Mean Corpuscular Hemoglobin 28.2 pg (27.0-31.0); Mean Corpuscular Volume 89.8 fL (78.0-98.0); Mean Platelet Volume 6.6 fL (7.4-10.4); Platelet Count 275 thou/uL (130-400); RBC Distribution Width 13.1 % (11.5-14.5); Red Blood Cell (RBC) Count 3.62 mill/uL (4.70-6.10); White Blood Cell (WBC) Count 8.5 thou/uL (4.8-10.8)
[2019-09-11 07:05] LABS: ALT (SGPT) 12 U/L (8-55); AST (SGOT) 15 U/L (5-34); Albumin 3.6 g/dL (3.4-4.8); Alkaline Phosphatase 66 U/L (40-110); Anion Gap 9 mmol/L (10-20); BUN (Urea Nitrogen) 12 mg/dL (8.4-25.7); Bilirubin, Total 0.3 mg/dL (0.2-1.2); Calc. Creatinine Clearance 54 mL/min (70-130); Calcium 9.2 mg/dL (7.8-10.44); Carbon Dioxide 30 mmol/L (23-31); Chloride 107 mmol/L (98-107); Estimated GFR-MDRD 59; Globulin 2.3 g/dL (2.4-3.5); Glucose 106 mg/dL (83-110); Potassium 3.8 mmol/L (3.5-5.1); Protein, Total 5.9 g/dL (5.8-8.1); Sodium 142 mmol/L (136-145)
--- NOTE | 2019-09-11 08:39 | PDOC.HOSPP ---
- Subjective Encounter Date: 09/11/19 Encounter Time: 08:37 Subjective: Patient alert and oriented. In a good mood. Was able to eat cream of wheat - Objective Vital Signs & Weight: Vital Signs (12 hours) Temp Pulse Resp BP Pulse Ox 09/11/19 07:17 98.2 F 75 16 114/70 97 09/10/19 20:50 97.9 F 72 16 131/66 99 Weight Admit Weight 79.633 kg Weight 77.111 kg I&O: 09/10/19 09/11/19 09/12/19 06:59 06:59 06:59 Intake Total 2060 990 Output Total 1200 Balance 860 990 Result Diagrams: 09/11/19 06:32 09/11/19 06:32 Hospitalist ROS - Medication Medications: Active Medications Generic Name Dose Route Start Last Admin Trade Name Freq PRN Reason Stop Dose Admin Amlodipine Besylate 10 mg 09/07/19 09:00 09/10/19 09:21 Norvasc PO 10 mg DAILY SANDOR Administration Enoxaparin Sodium 80 mg 09/07/19 21:00 09/10/19 21:29 Lovenox SC 80 mg 0900,2100 SANDOR Administration Lisinopril 10 mg 09/07/19 09:00 09/10/19 09:21 Zestril PO 10 mg DAILY SANDOR Administration Pantoprazole Sodium 40 mg 09/06/19 21:00 09/10/19 21:29 Protonix IVP 40 mg Q12HR SANDOR Administration - Exam General Appearance: awake alert Heart: RRR, no murmur, no gallops, no rubs, normal peripheral pulses Respiratory: CTAB, no wheezes, no rales, no ronchi Gastrointestinal: soft, non-tender, non-distended, normal bowel sounds, no palpable masses, no guarding, no rigidity Extremities: no edema Skin: no lesions, no rashes Psychiatric: normal affect, normal behavior, A&O x 3 Hosp A/P (1) Stomach cancer Status: Acute (2) Atrial fibrillation Code(s): I48.91 - UNSPECIFIED ATRIAL FIBRILLATION Status: Acute (3) Esophageal dysphagia Code(s): R13.10 - DYSPHAGIA, UNSPECIFIED Status: Acute (4) PAD (peripheral artery disease) Code(s): I73.9 - PERIPHERAL VASCULAR DISEASE, UNSPECIFIED Status: Chronic - Plan GI doctor stated possible grade 3 adenocarcinoma. Not able to have esophagectomy. Oncology should consult today. Patient can be discharged today after oncology consult. Pt unsure of PEG tube; not sure if necessary. Cancer doctor said approx 3 weeks of treatment needed before pt can swallow. Pt considering doing PEG tube on a later date. Informed pt that he needs to stop blood thinners before surgery. Discussed not taking pills for afib, but let him know he has increased risk for stroke. Pt decided to stay off blood thinners. He can eat now, and will follow up w/ doctor singh to see if he needs to be on blood thinners. Pt had cream of wheat today. Can take ensure. Can swallow pills
[2019-09-11] MEDS: Amlodipine 10 MG TAB PO SCH (09:18)
[2019-09-11] MEDS: Pantoprazole 40 MG VIAL IVP SCH (09:18)
[2019-09-11] MEDS: Enoxaparin Sodium 80 MG/0.8 ML SYRINGE SC SCH (09:18)
[2019-09-11] MEDS: Lisinopril 10 MG TAB PO SCH (09:18)
--- NOTE | 2019-09-11 15:44 | CON ---
DATE OF CONSULTATION: REASON FOR CONSULTATION: Adenocarcinoma. HISTORY OF PRESENT ILLNESS: Mr. Maddox is a pleasant 79-year-old gentleman with a 2-month history of dysphagia. He was scheduled for an outpatient endoscopy, but presented to the emergency room for worsening symptoms. He was noted to be in atrial fibrillation and was admitted to the telemetry unit. The patient states that he has had about a 35-pound weight loss over the last several months. He has had one episode of hemoptysis. He has dysphagia, but is able to eat semi-solid foods. He has a history of alcohol use and a remote history of smoking. He was seen by GI, and endoscopy was performed. His colonoscopy was normal except for hemorrhoids. His EGD showed a circumferential friable mass, extending from 40 cm down through the GE junction and into the wall of the gastric fundus. 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 He had invasive moderately differentiated adenocarcinoma in the esophagus. The patient also underwent a CT scan of the chest, abdomen, and pelvis. It showed the irregular near-circumferential soft tissue mass of the distal esophagus. There were small paraesophageal lymph nodes noted. There was no evidence of metastatic disease to the lungs. There was a small hypodense lesion that was difficult to characterize and was not measured in the liver. No bone metastatic disease. No metastatic disease in the abdomen or pelvis. The patient was seen at bedside with his present. He had no complaints at this time. PAST MEDICAL HISTORY: 1. Coronary artery disease. 2. Peripheral artery disease. 3. Hypertension. 4. Heart murmur. 5. Hyperlipidemia. PAST SURGICAL HISTORY: 1. Peripheral stents. 2. Aortic aneurysm repair. ALLERGIES: NO KNOWN DRUG ALLERGIES. HOME MEDICATIONS: 1. Amlodipine. 2. Benazepril. 3. Plavix. 4. Dexilant. 5. Atorvastatin. 6. Terbinafine. 7. Aspirin. 8. Ragland-3. FAMILY HISTORY: Mother of cancer, it is unclear which type. SOCIAL HISTORY: Single, lives with his significant other. Remote history of smoking, quit in 2008. Continues to use alcohol occasionally. No illicit drug use. REVIEW OF SYSTEMS: A 10-point review of systems is negative except for noted in HPI. PHYSICAL EXAMINATION: VITAL SIGNS: Temperature is 98.5, pulse is 72, respiratory rate 13, BP is 106/56, and he is 95% on room air. GENERAL: This is a well-developed, well-nourished male, in no acute distress. HEENT: Normocephalic and atraumatic. Pupils equal and reactive to light. NECK: Supple. CV: Regular rate and rhythm. LUNGS: Clear anterior. ABDOMEN: Soft and nontender. Bowel sounds are positive. EXTREMITIES: No clubbing or cyanosis. SKIN: No rash. HEMATOLOGIC: No petechiae or purpura. NEUROLOGIC: Nonfocal. PERTINENT LABORATORY DATA AND X-RAYS: Current WBCs are 8.5, hemoglobin 10.2, hematocrit 32.6, and platelet count is 275,000. He has 49% neutrophils and 37% lymphocytes. Sodium is 142, potassium 3.8, chloride 107, CO2 is 30, BUN is 12, creatinine 1.18, glucose 106, and calcium 9.2. Total bilirubin is 0.3, AST is 15, ALT is 12, alkaline phosphatase is 66, serum total protein is 5.9, albumin 3.6, and globulin 2.3. Urine is negative. Radiology per HPI. ASSESSMENT: Adenocarcinoma of the distal esophagus and gastric fundus. DISCUSSION: The patient is able to swallow liquids and soft foods. He has declined of a feeding tube at this time. We discussed potential chemotherapy options and he may need a MediPort in the outpatient setting. He may get a PET scan to further characterize the liver lesion as it has a potential to change treatment, particularly if he is HER2 positive. He will follow up in our clinic on Saturday to see Dr. Spann and discuss further options and testing. Thank you for the consult of this very nice gentleman. Job ID: [id number]
[2019-09-11 16:48] VITALS: BP 129/74; TEMP 97.8
[2019-09-11] MEDS ORDERED: Dexamethasone 1 MG TAB PO SCH (17:00)
--- NOTE | 2019-09-12 00:23 | DIS ---
DATE OF ADMISSION: 09/06/2019 DATE OF DISCHARGE: 09/11/2019 DISCHARGE DIAGNOSES: 1. Adenocarcinoma of the esophagus and stomach. 2. Severe dysphagia. 3. Atrial fibrillation. 4. Hypertension. 5. Hyperlipidemia. 6. Peripheral arterial disease. 7. Coronary artery disease. HISTORY OF PRESENT ILLNESS: This patient is an 79-year-old male, who presented to the hospital with some severe dysphagia. The patient has been seen in the outpatient clinic, followed by Dr. Westbrook and there was anticipation of an outpatient endoscopy. However, the patient's dysphagia progressed. He called the on-call skin grader, who referred him to the hospital for further evaluation. On arrival to the emergency department, the patient was in atrial fibrillation, stable rate. HOSPITAL COURSE: The patient was admitted to the hospital, maintained on a full liquid diet, given IV fluids. He had been on Plavix and aspirin for his peripheral vascular disease and coronary artery disease. He was seen in consultation by GI and subsequently had EGD performed, which revealed a mass in the distal esophagus and stomach. Biopsies were obtained and came back the following day, consistent with adenocarcinoma with signet ring cells present in the gastric portion biopsy, although this was contiguous mass with diagnosis of distal esophageal adenocarcinoma, dysphagia. Discussed case with Oncology, but they felt it would be several weeks prior to the patient's being able to have enough improvement with chemotherapy in order to resolve the dysphagia significantly. Therefore, GI talked to the patient regarding the possibility of percutaneous gastric tube. The patient delay that, so he could have a conversation with me. We had a long discussion and explained to the patient that there was risk of stroke with his atrial fibrillation and needed to make a decision about PEG tube, so that we could make decisions regarding anticoagulation as the PEG tube would need to be done before that was initiated. We discussed the risk of stroke versus the risk of bleeding, which may be high in light of his current case of cancer and the fact that being on anticoagulants would delay him getting a PEG tube by 4 to 5 days if he should change his mind and wants to proceed with that at any time in the near future. He ultimately made the decision to forego any additional anticoagulation for now. He will follow up with Dr. Nick Ferrari, who is his heating systems installer, and they can discuss the situation further regarding the need for anticoagulation. The patient remained asymptomatic and well rate controlled throughout his entire admission. He was seen in consultation by Oncology, who recommended that the patient have outpatient followup and would likely need some additional receptor test on the tumor as well as a PET scan. With that, the patient was felt to be stable for discharge as he felt he was swallowing full liquids such as grapes and cream of beets along with the supplemental drinks like Ensure and boost adequately to maintain himself. PHYSICAL EXAMINATION: VITAL SIGNS: On the day of discharge, temperature is 97.8, pulse 80, respirations 18, O2 saturation 99% on room air, BP is 129/74. GENERAL: He is awake and alert, pleasant, cooperative. HEART: Irregular with 1 to 2/6 murmur. LUNGS: Clear to auscultation. No wheezes or rales. ABDOMEN: Soft, nontender, and nondistended. Positive bowel sounds. No masses. No organomegaly. EXTREMITIES: No cyanosis, clubbing, or edema. DISPOSITION: The patient is discharged to home. He will remain on a full liquid diet. ACTIVITY: As tolerated. MEDICATIONS: He will continue his usual home medication regimen includin. Aspirin 81 mg daily. 2. Amlodipine 10 mg daily. 3. Benazepril 10 mg daily. 4. Atorvastatin 80 mg daily. 5. Ezetimibe 10 mg daily. 6. Clopidogrel 75 mg daily. 7. Terbinafine 250 mg daily. 8. [place]-3 fatty acids 4 g daily. 9. Dexilant 30 mg daily. FOLLOWUP: He is to follow up with Oncology in the outpatient Clinic. He is to follow up with his primary care provider, Dr. Santosh Pina, and he is to follow up with Dr. Lee Westbrook in the [facility] should he have the desire to pursue a PEG tube at any point going forward. He can return to the hospital at any time should he have the need to do so. Job ID: [id number]
== END 2019-09-11 16:32 | disposition home or self-care (01) | DRG 375 ==
LOC: ERS 09:38 → 2NO 13:44
PROVIDERS: ADMIT Internal Medicine; ATTEND Internal Medicine
PROC: 0DB58ZX Excision of Esophagus, Via Natural or Artificial Opening Endoscopic, Diagnostic (ICD-10-PCS; principal; 2019-09-09)
PROC: 0DB68ZX Excision of Stomach, Via Natural or Artificial Opening Endoscopic, Diagnostic (ICD-10-PCS; 2019-09-09)
PROC: 0DJD8ZZ Inspection of Lower Intestinal Tract, Via Natural or Artificial Opening Endoscopic (ICD-10-PCS; 2019-09-09)
DX: C16.9 Malignant neoplasm of stomach, unspecified (principal); C15.9 Malignant neoplasm of esophagus, unspecified; K57.32 Diverticulitis of large intestine without perforation or abscess without bleeding; R13.19 Other dysphagia; I48.91 Unspecified atrial fibrillation; I10 Essential (primary) hypertension; E78.5 Hyperlipidemia, unspecified; R63.4 Abnormal weight loss; K64.8 Other hemorrhoids; I73.9 Peripheral vascular disease, unspecified; I25.10 Atherosclerotic heart disease of native coronary artery without angina pectoris; Z79.01 Long term (current) use of anticoagulants
CPT/HCPCS: 36415; 71045; 71260; 74177; 80053; 81003; 83690; 83735; 84443; 84484; 85025; 88305; 88312; 88313; 93005; 96360; C9113; J1650; J2001; J2704; Q9967

== ENCOUNTER 2019-09-22 08:54 | Outpatient (CLI) | payer MEDICARE, MEDICAID ==
--- NOTE | 2019-09-22 13:33 | PET ---
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 Exam was requested for initial staging. TECHNIQUE: PET scanning with CT attenuation correction was performed from the base of the brain throughout the p roximal thighs following the intravenous administration of 11 mCi [id number] in the left antecubital fossa. COMPARISON: None. CORRELATION: CT chest, abdomen, and pelvis dated 09/09/2019. FINDINGS: There is increased FDG localization in the gatroesophageal mass with an SUV of 11. The 12 mm right p araesophageal posterior mediastinal lymph node noted on the CT scan demonstrates no abnormal FDG loca lization and has an SUV of 1.9. No arash hypermetabolism is seen at the neck, hilar regions, axillae, abdomen, or pelvis. No hypermetabolic pulmonary nodules, liver, adrenal, or skeletal lesions are identified. There is physiologic activity in the GI and tracts and the visualized portions of the brain. The CT scan used for attenuation demonstrates no evidence of pleural effusions or ascites. There is cholelithiasis, left renal cyst, colonic diverticulosis, and an endovascular stent graft in the abdom inal aorta. IMPRESSION: Gastroesophageal malignancy without evidence of distinct metastatic disease. POS: CARLINE
== END 2019-09-22 08:55 | disposition home or self-care (01) ==
LOC: PET 08:54
PROVIDERS: ATTEND Internal Medicine Hematology & Oncology
DX: C16.0 Malignant neoplasm of cardia (principal)
CPT/HCPCS: 78815; A9552

== ENCOUNTER 2019-09-25 13:08 | Outpatient (CLI) | payer MEDICARE, MEDICAID ==
[2019-09-25 14:13] LABS: #Basophils 0.1 thou/uL (0.0-0.2); #Eosinphils 0.2 thou/uL (0.0-0.7); #Lymphocytes 2.8 thou/uL (1.20-3.40); #Neutrophils 7.2 thou/uL (1.40-6.50); %Basophils 0.9 % (0.0-1.0); %Eosinophils 2.1 % (0.0-10.0); %Lymphocytes 24.4 % (21.0-51.0); %Neutrophils 63.7 % (42.0-75.0); Hemoglobin 10.2 g/dL (14.0-18.0); Mean Corpuscular HGB CONC 32.7 g/dL (32.0-36.0); Mean Corpuscular Hemoglobin 28.9 pg (27.0-31.0); Mean Corpuscular Volume 88.5 fL (78.0-98.0); Mean Platelet Volume 7.1 fL (7.4-10.4); Platelet Count 385 thou/uL (130-400); RBC Distribution Width 13.5 % (11.5-14.5); Red Blood Cell (RBC) Count 3.53 mill/uL (4.70-6.10); White Blood Cell (WBC) Count 11.3 thou/uL (4.8-10.8)
--- NOTE | 2019-09-25 14:13 | RAD ---
2 view chest: [09/25/2019] Comparison:09/06/2019 HISTORY: Preoperative patient, history of esophageal/gastric cancer FINDINGS: No pneumothorax, pleural fluid, focal consolidation, or alveolar edema. Subtle increased de nsity is seen overlying the cardiac silhouette to the right of midline inferiorly, consistent with the patient's history of malignancy in this region. IMPRESSION: Soft tissue density overlies the inferior medial right aspect of the mediastinum, consist ent with the patient's known malignancy in this region. No acute findings.
[2019-09-25 14:40] LABS: Anion Gap 14 mmol/L (10-20); BUN (Urea Nitrogen) 19 mg/dL (8.4-25.7); Calc. Creatinine Clearance 0 mL/min (70-130); Calcium 9.3 mg/dL (7.8-10.44); Carbon Dioxide 24 mmol/L (23-31); Chloride 108 mmol/L (98-107); Estimated GFR-MDRD 63; Glucose 107 mg/dL (83-110); Potassium 4.7 mmol/L (3.5-5.1); Sodium 141 mmol/L (136-145)
== END 2019-09-25 13:09 | disposition home or self-care (01) ==
LOC: LABBT 13:08
PROVIDERS: ATTEND Specialist
DX: Z01.818 Encounter for other preprocedural examination (principal); C16.0 Malignant neoplasm of cardia; R91.8 Other nonspecific abnormal finding of lung field
CPT/HCPCS: 71046; 80048; 85025; 93005; 93010

== ENCOUNTER 2019-09-29 11:45 | Day surgery (SDC) | payer MEDICARE, MEDICAID ==
[2019-09-25 13:27] VITALS: BMI 24.7
[~2019-09-29 11:45] MED LIST: PROPOFOL 200 MG/20 ML VIAL ONE
[2019-09-29] MEDS ORDERED: Ketorolac Tromethamine 30 MG/ML VIAL ONE (11:56)
[2019-09-29] MEDS ORDERED: Acetaminophen 500 MG TAB ONE (11:57)
[2019-09-29] MEDS ORDERED: Bupivacaine 0.25% HCL 30 ML VIAL ONE (15:11)
[2019-09-29] MEDS ORDERED: Lidocaine 1% (PF) 30 ML VIAL ONE (15:11)
[2019-09-29] MEDS ORDERED: EPINEPHrine 1 MG/ML AMP ONE (15:11)
[2019-09-29] MEDS ORDERED: Propofol 500 MG/50 ML VIAL ONE (15:14)
[2019-09-29] MEDS ORDERED: Fentanyl 100 MCG/2 ML VIAL ONE (15:14)
--- NOTE | 2019-09-29 17:15 | RAD ---
EXAM: CHEST ONE VIEW: 09/29/19 HISTORY: Post Mediport placement. COMPARISON: 09/25/19. FINDINGS: Right subclavian catheter injection port in place. Old granulomatous disease. Heart size within eloy l limits. No pneumothorax or pleural effusion. IMPRESSION: Right subclavian catheter injection port. No pneumothorax or pleural effusion. Old granulomatous dis ease. Atherosclerosis of the aorta. Evidence for moderate hiatal hernia. POS: [facility]
--- NOTE | 2019-09-30 08:51 | OP ---
DATE OF PROCEDURE: 09/29/2019 PREOPERATIVE DIAGNOSIS: Gastroesophageal cancer. POSTOPERATIVE DIAGNOSIS: Gastroesophageal cancer. PROCEDURE PERFORMED: Placement of a low-profile right subclavian power compatible MediPort. ANESTHESIA: General endotracheal. INDICATIONS: The patient is an 79-year-old white male. He requires chemotherapy for his malignancy and MediPort placement is requested for purpose. DESCRIPTION OF OPERATION: Informed consent was obtained. The patient was taken to the operating room where total intravenous anesthesia was obtained with the patient in supine position. Periclavicular area was prepped with ChloraPrep and draped in sterile fashion. Local anesthetic was infiltrated and a large-gauge needle was passed under the clavicle in the subclavian vein. Guidewire was passed through the needle and fluoroscopically confirmed to enter the superior vena cava. Additional local anesthetic was infiltrated and transverse incision was created based on needle insertion site. A subcutaneous pocket was dissected inferiorly. Introducer dilator was passed over the guidewire under fluoroscopic guidance. The guidewire and dilator were removed, and the catheter was passed through the introducer. The tip of the catheter was positioned at the atriocaval junction and the catheter was trimmed to the appropriate length and secured to the locking hub of the MediPort. The port was then placed in the subcutaneous pocket where it was secured to the pectoral fascia with 2 interrupted sutures of 3-0 Prolene. The incision was then closed in layers with 3-0 and 4-0 Monocryl. Additional local anesthetic was infiltrated. The port was cannulated with a Lawson needle and it aspirated blood freely and was flushed with heparinized saline. Dermabond was placed externally on the skin incision. There were no complications. Blood loss was negligible. The patient tolerated the procedure well and was taken to recovery room in stable condition. FINDINGS: I chose a low-profile port secondary to his body habitus. The operation was performed uneventfully using fluoroscopy throughout. There was essentially no blood loss and no complications. The patient tolerated the procedure well and was taken to recovery in stable condition. Job ID: [id number]
== END 2019-09-29 17:35 | disposition home or self-care (01) ==
LOC: SDC 11:45
PROVIDERS: ATTEND Specialist
PROC: 02HV33Z Insertion of Infusion Device into Superior Vena Cava, Percutaneous Approach (ICD-10-PCS; principal; 2019-09-29)
PROC: B5181ZA Fluoroscopy of Superior Vena Cava using Low Osmolar Contrast, Guidance (ICD-10-PCS; 2019-09-29)
DX: C16.0 Malignant neoplasm of cardia (principal); Z87.891 Personal history of nicotine dependence; Z79.899 Other long term (current) drug therapy; Z95.820 Peripheral vascular angioplasty status with implants and grafts
CPT/HCPCS: 36561; 71045; 76000; C1788; J0171; J0690; J1642; J1885; J2001; J2704; J3010; S0020

== ENCOUNTER 2019-10-06 09:39 | Outpatient (CLI) | payer MEDICARE, MEDICAID ==
--- NOTE | 2019-10-06 11:19 | MRI ---
EXAM: MRI of the abdomen without and with contrast COMPARISON: PET CT 09/22/2019; CT abdomen 09/09/2019 HISTORY: Stomach and esophageal cancer with abdominal pain TECHNIQUE: Multiplanar multi sequence MR images were taken of the abdomen without and with IV contras t. [An MRCP was performed.] FINDINGS: Liver: Significant signal loss is seen in the liver on the T1 images. This is more intense on the in phase images consistent with iron deposition. No focal liver lesions or intrahepatic ductal dilatation. Normal signal without dropout on out of phase images. No abnormal enhancement. Gallbladder: Single small filling defect within the gallbladder may represent a small gallstone. Common bile duct: Normal caliber without filling defects Adrenal glands: Unremarkable. Kidneys: Well-circumscribed nonenhancing foci of T2 signal in the kidneys measuring up to 7.2 cm in s ize represent cysts. No abnormal areas of enhancement. Spleen: Significant signal loss is seen in the liver on the T1 images. This is more intense on the in phase images consistent with iron deposition.. Pancreas: Unremarkable. No abnormal enhancement. Retroperitoneum: No enlarged lymph nodes. There appears to be a stent graft within an abdominal aorti c aneurysm measuring 4.1 cm in greatest dimension. Bones: No marrow signal abnormality. There is a moderate hiatal hernia with a likely mass within the hiatal hernia. IMPRESSION: 1. Iron deposition within the liver and spleen 2. Bilateral renal cysts 3. Possible small gallstone 4. Hiatal hernia with likely mass within the hiatal hernia
[2019-10-06] MEDS ORDERED: Magnevist 469MG/ML 20 ML VIAL ONE (14:11)
== END 2019-10-06 09:40 | disposition home or self-care (01) ==
LOC: BICMRI 09:39
PROVIDERS: ATTEND Internal Medicine Hematology & Oncology
DX: K76.9 Liver disease, unspecified (principal); C16.8 Malignant neoplasm of overlapping sites of stomach; N28.1 Cyst of kidney, acquired; K44.9 Diaphragmatic hernia without obstruction or gangrene
CPT/HCPCS: 74183; A9579

== ENCOUNTER 2019-12-22 13:06 | Outpatient (CLI) | payer MEDICARE, MEDICAID ==
[~2019-12-22 13:06] MED LIST changes: +Iopamidol-370 76% 500 ML 1 ML ONE; -PROPOFOL 200 MG/20 ML VIAL ONE
--- NOTE | 2019-12-22 14:44 | CT ---
CT THORAX WITH CONTRAST CT ABDOMEN WITH CONTRAST: DATE: 12/22/2019 HISTORY: 79-year-old male with ICD-10: "C 16.8 malignant neoplasm of overlapping sites of stomach" TECHNIQUE: IV iodinated contrast media: Administered Oral contrast media: Administered Single phase scans of thorax, abdomen, and pelvis. COMPARISON: 09/09/2019 FINDINGS: The neoplastic tumor mass at the esophagogastric junction has decreased in size. It is currently appr oximately 3.5 x 4 x 3.5 cm. It was previously approximately 5 x 4 x 4.5 cm. There are new small bilateral pleural effusions. Broad region of [id number] groundglass changes at the posterior base of left lower lobe appears slightly worse on the current study compared to the previous. Nonspecific. At least mild paraseptal emphysema. Approximately 1 cm lateral to the right hilum, there is a 0.7 x 0.8 x 0.7 cm noncalcified pulmonary n odule. Previously, this was very inconspicuous, approximately 0.5 x 0.4 x 0.4 cm, with the appearance of noncalcified granuloma and nonspecific. The presence of calcified right hilar lymph nodes, indicating old granulomatous disease, made it more likely at that time that the pulmonary nodule was a granuloma. It is in the anterior segment of right upper lobe. The interval growth makes this suspicious for metastasis. It is probably still smal l to be detected on PET scan. The small right posterior mediastinal lymph node between the distal esophagus, upper edge of the tumo r, and anterior to the lower thoracic vertebra, is no longer present. However, now there is a new approximately 1.2 x 0.7 x 1.4 cm lymph node to the left of midline, posterior to the lower esophagus Tiny pericardial effusion is again noted. No significant mediastinal lymphadenopathy. Fluid in superi or pericardial recess is again noted. Atherosclerosis without aneurysm of thoracic aorta. Tiny calcified gallstone. Subtle patch of minimally hypodense parenchyma at the inferior edge of left lobe of liver hepatic segment IVb was previously measured as 1 cm. It currently measures approximately 1.7 x 2 x 1.7 cm. It appears unchanged in size on the sagittal and coronal images, sugg esting that the apparent difference on axial images is due to slice selection and timing of scan. This was apparently not FDG avid. Exact etiology uncertain. No other focal hepatic lesion. Heavy athe rosclerosis of abdominal aorta. Endograft within abdominal aortic infrarenal aneurysm, approximately 4.1 cm. Multiple bilateral renal cysts. No hydronephrosis. No adrenal mass. Unremarkable pancreas and spleen. No evidence of retroperitoneal or arabella hepatis lymphadenopathy. No ascites visualized. High-grade de generative disc disease at several levels in lumbar spine especially L1-2. Bilateral L5 spondylolysis with minimal grade 1 spondylolisthesis at L5-S1. Retrolisthesis of L4 on L5. IMPRESSION: 1) partial response to therapy. Interval decrease in size of malignant neoplastic tumor mass at the e sophagogastric junction. 2) 8 mm small right perihilar pulmonary nodule, previously inconspicuous. Somewhat suspicious for lai itary pulmonary metastasis. Probably too small for PET scan. Recommend follow-up. 3) small subtle faint lesion in the left lobe of liver is probably stable, but follow-up is recommend ed. 4) new small bilateral pleural effusions. 5) emphysema. 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 7) lumbar spondylosis. 8) bilateral L5 spondylolysis 9) the lower paraesophageal lymph node using mentioned, is no longer visible. However, there is a new minimally enlarged paraesophageal lymph node. 10) cholelithiasis.
== END 2019-12-22 13:07 | disposition home or self-care (01) ==
LOC: BICCT 13:06
PROVIDERS: ATTEND Internal Medicine Hematology & Oncology
DX: C16.8 Malignant neoplasm of overlapping sites of stomach (principal); D50.8 Other iron deficiency anemias; R91.1 Solitary pulmonary nodule; K76.9 Liver disease, unspecified; J90 Pleural effusion, not elsewhere classified; J43.9 Emphysema, unspecified; M47.816 Spondylosis without myelopathy or radiculopathy, lumbar region; K80.20 Calculus of gallbladder without cholecystitis without obstruction
CPT/HCPCS: 71260; 74160; Q9967

== ENCOUNTER 2020-02-10 08:58 | Outpatient (CLI) | payer MEDICARE, MEDICAID ==
--- NOTE | 2020-02-10 10:53 | CT ---
CT OF THE CHEST AND ABDOMEN AND PELVIS WITH IV CONTRAST: Date: 02/10/2020 INDICATION: History of esophageal cancer. COMPARISON: Prior CT of the chest dated 12/22/2019, MRI abdomen dated 10/06/2019, PET CT dated 09/22/2019, and CT of chest/abdomen/pelvis dated 09/09/2019. FINDINGS: CHEST: There is worsening bilateral pleural effusions, moderate right and small left in size. There is worse wallace subsegmental volume loss within the right middle lobe with associated bronchiectasis. There is b ibasilar compressive atelectasis involving both lower lobes and bilateral pleural effusions. There is enteric contrast within the esophagus. There are coronary artery and thoracic aorta calcifications. There is a right chest wall port. There is a right hilar lymph node measuring 8.3 mm, which is relati vely stable to the prior exam. The prominent wall thickening involving the distal esophagus and proximal gastric cardia appear less prominent. The posterior mediastinal lymph node appears to be enlarged, measuring 12.0 x 7.0 mm, now measures 8.0 x 5.0 mm. The small right parahilar pulmonary nodule measures 7.8 x 7.4 mm, which is stable. Numerous calcified granuloma of the right hilar region similar appearing. Scattered emphysema again seen. ABDOMEN/PELVIS: There is much more extensive reticularnodularity involving the omentum with worsening ascites. There is prominent diffuse wall thickening involving the stomach, some of which may be related to underdist ention. Bilateral renal cysts are similar appearing. Aorto endograft stent and extruded aneurysmal sac of the abdominal aorta is similar appearing. Adrenal glands, pancreas, and spleen appear within normal limits. Small focal hypodense lesion seen within the left hepatic lobe on the prior examination is not defini tely seen on the current examination. No new hypodense lesion is evident. There is scattered colonic diverticula involving the colon. Small bowel is of normal caliber. There is thoracolumbar scoliosis. There is scattered degenerative change. No definite acute osseous abnormality is evident. IMPRESSION: 1. Findings of mixed response to therapy. The prominent circumferential mass of the distal esophagus and proximal gastric cardia appear less prominent. The posterior mediastinal lymphadenopathy has imp roved. However, there is worsening reticulation and nodularity involving the omentum suspicious for c arcinomatosis of the peritoneum. There is worsening ascites. Would recommend consideration for a diag nostic paracentesis to confirm the suspicion for peritoneal carcinomatosis. 2. Moderate right and small left pleural effusion. 3. Pulmonary nodule within the right hilar region is stable. Findings of prior granulomatous disease are stable. Findings of prior emphysema are stable. 4. Reflux of material within the esophagus may reflect dysmotility or gastroesophageal reflux. 5. Tiny hypodensity within the left hepatic lobe adjacent to the gallbladder fossa is no longer demo nstrated and may have been artifactual in nature from the prior exam. POS: [facility]
[2020-02-10] MEDS ORDERED: Iopamidol-370 76% 500 ML 1 ML ONE (16:27)
== END 2020-02-10 08:59 | disposition home or self-care (01) ==
LOC: BICCT 08:58
PROVIDERS: ATTEND Internal Medicine Hematology & Oncology
DX: C16.8 Malignant neoplasm of overlapping sites of stomach (principal); J90 Pleural effusion, not elsewhere classified; K21.9 Gastro-esophageal reflux disease without esophagitis; K66.8 Other specified disorders of peritoneum; R59.0 Localized enlarged lymph nodes; R18.8 Other ascites; R91.1 Solitary pulmonary nodule
CPT/HCPCS: 71260; 74177; Q9967

== ENCOUNTER 2020-02-11 10:02 | Inpatient (IN) | payer MEDICARE, MEDICAID, OTHER ==
[2020-02-11 10:41] LABS: ALV-art Gradient 66.715 (0-20); Actual Bicarbonate (HCO3a) 21.9 mEq/L (22-28); Analyzer IN Cardio ER; Base Excess (BEa) -3.3 mEq/L (-2.0 to +3.0); CO2 Tension 39.7 mmHg (35.0-45.0); Calcium, Ionized (arterial) 1.32 mmol/L (1.12-1.30); Carboxyhemoglobin (COHb) 0.2 gm% (0.0-3.0); Hemoglobin (Hb) 11.4 g/dL (14.0-18.0); O2 Tension (PaO2), arterial 83.3 mmHg (> 60.0); Potassium - ABG Lab 4.61 mmol/L (3.70-5.30); Puncture Site RRA; pH, Arterial 7.36 (7.35-7.45)
[2020-02-11 10:49] LABS: Hemoglobin 10.6 g/dL (14.0-18.0); Mean Corpuscular HGB CONC 30.4 g/dL (32.0-36.0); Mean Corpuscular Hemoglobin 25.8 pg (27.0-31.0); Mean Corpuscular Volume 84.8 fL (78.0-98.0); Mean Platelet Volume 8.3 fL (7.4-10.4); Platelet Count 548 thou/uL (130-400); RBC Distribution Width 17.8 % (11.5-14.5); Red Blood Cell (RBC) Count 4.12 mill/uL (4.70-6.10); White Blood Cell (WBC) Count 22.2 thou/uL (4.8-10.8)
--- NOTE | 2020-02-11 10:53 | RAD ---
Exam: Chest one view HISTORY:Dyspnea Comparison: 09/06/2019, 09/29/2019 FINDINGS: Lines and tubes: Stable right-sided Mediport catheter. Cardiac silhouette: Normal Aorta: Atherosclerosis Pulmonary vessels: Normal Costophrenic angles: Right-sided pleural effusion. Pleural fluid tracks along the minor fissure. LUNGS: Parenchymal changes in the right hemithorax. Pneumothorax: None Osseous abnormalities: None IMPRESSION: Pleural and parenchymal changes in the right hemithorax. Continued surveillance to ensure resolution.
[2020-02-11 11:03] LABS: ALT (SGPT) 27 U/L (8-55); AST (SGOT) 36 U/L (5-34); Albumin 2.7 g/dL (3.4-4.8); Alkaline Phosphatase 195 U/L (40-110); Anion Gap 15 mmol/L (10-20); BUN (Urea Nitrogen) 49 mg/dL (8.4-25.7); Bilirubin, Total 0.6 mg/dL (0.2-1.2); CK (CPK) 30 U/L (30-200); Calc. Creatinine Clearance 0 mL/min (70-130); Calcium 9.6 mg/dL (7.8-10.44); Carbon Dioxide 21 mmol/L (23-31); Chloride 108 mmol/L (98-107); Estimated GFR-MDRD 82; Globulin 3.3 g/dL (2.4-3.5); Glucose 137 mg/dL (83-110); Lipase 15 U/L (8-78); Potassium 4.8 mmol/L (3.5-5.1); Sodium 139 mmol/L (136-145)
[2020-02-11 11:06] LABS: Anisocytosis SLIGHT = 6-15 cells (100X) (0-5/hpf); Band 4 % (5-11); Elliptocytes SLIGHT = 2-5 cells (100X) (0-1/hpf); Hypochromia SLIGHT = 6-15 cells (100X) (0-5/hpf); Lymphocytes 11 % (21-51); MDiff Complete? YES; Monocytes 12 % (0-10); Neutrophil 72 % (42-75); Ovalocytes SLIGHT = 2-5 cells (100X) (0-1/hpf); Platelet Morphology Comment Appears Increased; Polychromasia SLIGHT = 2-3 cells (100X) (0-2/hpf)
[2020-02-11] MEDS ORDERED: Cefepime 1 GM VIAL ONE (11:14)
[2020-02-11] MEDS ORDERED: Vancomycin 1 GM/200 ML BAG ONE (11:15)
[2020-02-11] MEDS ORDERED: Cefepime 2 GM VIAL ONE (11:15)
[2020-02-11 11:27] LABS: CKMB 1.2 ng/mL (0-6.6)
[2020-02-11] MEDS ORDERED: Iopamidol-370 76% 500 ML 1 ML ONE (11:29)
[2020-02-11 13:08] LABS: Bacteria/HPF None Seen HPF (None Seen); Bilirubin Negative (Negative); Blood, Urine Negative (Negative); Clarity Clear (Clear); Glucose, Urine (Dipstick) Normal (Negative); Ketone, Urine Negative (Negative); Leukocyte Negative Leu/uL (Negative); Nitrite Negative (Negative); Protein, Urine (Dipstick) 30 mg/dL (Neg-Trace); RBC/HPF 0-3 HPF (0-3); Squamous Epithelial None Seen HPF (0-3); Urobilinogen Normal mg/dL (Less than 2); WBC/HPF 0-3 HPF (0-3); pH, Urine 5.5 (5.0-9.0)
[2020-02-11 13:10] LABS: Specific Gravity, Urine 1.047 (1.002-1.036)
[2020-02-11 15:06] LABS: Troponin I 0.031 ng/mL (< 0.028)
[2020-02-11] MEDS ORDERED: Sodium Chloride 0.9% 1,000 ML IV SCH (15:30)
[2020-02-11] MEDS ORDERED: Ondansetron ODT 4 MG TAB SL PRN (15:30)
[2020-02-11] MEDS ORDERED: Ondansetron PF 4 MG/2 ML Vial IVP PRN ×2 (15:30→16:45)
[2020-02-11] MEDS ORDERED: Ondansetron ODT 4 MG TAB PO PRN (16:45)
[2020-02-11] MEDS ORDERED: Mirtazapine 15 MG TAB PO PRN (16:45)
[2020-02-11] MEDS ORDERED: Acetaminophen 325 MG TAB PO PRN (16:45)
[2020-02-11] MEDS ORDERED: Acetaminophen 650 MG Suppository PR PRN (16:45)
[2020-02-11] MEDS ORDERED: Guaifenesin DM 100-10/5 ML UDCUP PO PRN (16:45)
[2020-02-11 18:04] LABS: Troponin I 0.014 ng/mL (< 0.028)
--- NOTE | 2020-02-11 18:11 | HP ---
PRIMARY CARE PHYSICIAN: Santosh Pina MD. PRIMARY ONCOLOGIST: Nelsy Spann MD CHIEF COMPLAINT: Shortness of breath and cough. HISTORY OF PRESENT ILLNESS: This is an 79-year-old white male, who was diagnosed with esophageal cancer back in August of this year. He has been going to [place] for chemotherapy treatments as well as being treated here by Dr. Spann. He did have an esophageal stent placed down in [place], and then after the chemotherapy caused shrinkage of that tumor, he had that removed. The patient has been having some increased abdominal girth and has been told he has some cancer in his abdomen. He has been able to eat a little bit, but states that he is actually getting a lot of his nutrition through his IV. He does have a PICC line in place. The patient reports that he for the last 2 to 3 days has had increasing weakness, trouble walking, associated with shortness of breath especially with exertion, not necessarily when he lays down flat. He has also had a cough productive of white sputum that is worsening and has had wheezing. He has no history of asthma or COPD. The patient denies any fever. He eventually presented to the emergency room because of worsening of his symptoms. In the ER, he was noted to be saturating about 92% on room air, but with tachypnea up to 28 breaths per minute. He was put on 2 L of oxygen and was breathing a little bit easier, but still tachypneic. He had no fever there. The patient did have severely elevated D-dimer in the emergency room, so had a CT angio done. This showed no evidence for pulmonary embolism. No evidence for pneumonia. No evidence for COVID type infiltrates. Did have some reticulonodular appearance of the mesentery of the anterior abdomen worrisome for carcinomatosis. This is stable since a CT done a day ago, but new since his initial CT back in August. Also, has a persistent partial collapse of the right lower lobe, which is stable. The patient was noted to have a leukocytosis of 22,000, which is up from 13,000 about a week ago. He did have a negative lactic acid and a normal creatinine. He was given cefepime and vancomycin in the emergency room, and a COVID test has been sent, and he is now admitted to the telemetry floor. He did have indeterminate troponins of 0.031 in the emergency room with a history of previous coronary artery disease. His brain natriuretic peptide was also elevated at 222. We do not have any previous ones on this. REVIEW OF SYSTEMS: CONSTITUTIONAL: See HPI. HEENT: Eyes; no double vision or blurred vision. ENT; no congestion, drainage, or sore throat. CARDIOVASCULAR: No chest pain. No palpitations or racing heart. PULMONARY: See HPI. GASTROINTESTINAL: He has some anterior abdominal wall tenderness and swelling as per the HPI, but otherwise, no pain. No nausea or vomiting. Apparently, he did have a single episode of vomiting about 2 weeks ago. No diarrhea or constipation. GENITOURINARY: No dysuria or hematuria. MUSCULOSKELETAL: No muscle aches or joint pain. SKIN: No rashes or lesions noted. NEUROLOGIC: Intact. No numbness, tingling, or focal weakness noted. PAST MEDICAL HISTORY: 1. Coronary artery disease, followed by Dr. Nick Ferrari. 2. Peripheral artery disease. 3. Adenocarcinoma of the esophagus and stomach. 4. Hypertension. 5. Hyperlipidemia. 6. Atrial fibrillation, diagnosed in August of this year. 7. Severe dysphagia. PAST SURGICAL HISTORY: 1. Peripheral artery stents x5. 2. Intravascular aortic aneurysm repair performed at the iliac bifurcation. 3. PICC line placement. 4. Right subclavian MediPort. 5. Esophageal stent placement and removal. SOCIAL HISTORY: The patient previously smoked a pack and a half cigarettes per day, quit in 2008. Drinks an occasional beer. No illicit drug use. He is full code. Should be incapacitated, his medical decision maker would be his son, who is getting his medical [id number] paperwork filled out right now. FAMILY HISTORY: Mother of cancer. She had several types over the years. The father had advanced dementia. ALLERGIES: NO KNOWN DRUG ALLERGIES. CURRENT MEDICATIONS: 1. Amlodipine 5 mg daily. 2. Aspirin 81 mg daily. 3. Atorvastatin 80 mg daily. 4. Benazepril 10 mg daily. 5. Ezetimibe 10 mg daily. 6. Metoprolol tartrate 25 mg twice a day. 7. Mirtazapine 15 mg 1 to 2 tablets at night as needed. 8. Protonix 40 mg twice a day. PHYSICAL EXAMINATION: VITAL SIGNS: Blood pressure 132/80, pulse 101, respirations 25 on my exam, O2 saturation 92% on 2 L nasal cannula, temperature 98.5. GENERAL: This is a well-developed, well-nourished, white male, who has mildly increased work of breathing on 2 L of oxygen, but is able to speak clearly in full sentences. HEENT: Pupils are equally round and reactive to light. Oropharynx clear without lesions, erythema, or exudate. NECK: Supple. No lymphadenopathy. No thyroid nodules or enlargement. No JVD. HEART: Regular rate and rhythm. No murmurs, rubs, or gallops. LUNGS: The patient has diffuse expiratory wheezing and increased work of breathing as above. Decent any air movement throughout. No retractions or accessory muscle use. ABDOMEN: Soft, mildly distended, tender to palpation in the mid epigastric and periumbilical region with some mild guarding. No rebound tenderness. No hepatosplenomegaly or other specific masses palpable. Normoactive bowel sounds. EXTREMITIES: No clubbing, cyanosis, or edema. SKIN: No rashes or other lesions noted. NEUROLOGIC: The patient moves all extremities equally. No facial droop. PSYCHIATRIC: Alert and orient x3. Normal mood and affect. LABORATORY DATA: CBC with a white blood cell count of 22,000, 72% neutrophils, 4% bands, 11% lymphocytes, 12% monocytes. Hemoglobin is 10.6, hematocrit 34.9 with a normal MCV. These are about stable over the last year. Coagulation profile with a D-dimer of 8.4. Arterial blood gas shows a pH of 7.36, pCO2 of 39, and pO2 of 83. Complete metabolic panel is notable for chloride of 108, carbon dioxide of 21, BUN of 49, creatinine of 0.89, glucose of 137, AST of 36, alkaline phosphatase of 195, and then albumin of 2.7. The rest was normal. Troponin was indeterminate x2, 0.031 both times. Brain natriuretic peptide is 222. Lactic acid was negative. Urinalysis showed 30 protein, otherwise normal. CTA of the chest and thorax showing no pulmonary embolism. Moderate right and small left pleural effusions. Reticulonodular appearance involving the mesentery of the anterior abdomen concerning for carcinomatosis. Thickening involving the distal esophagus and cardia of the stomach, and persistent area of consolidation in the right lower lobe with the appearance of partial collapse of the right middle lobe and likely attributable to volume loss. ASSESSMENT AND PLAN: 1. Sepsis concerning for pulmonary source. The patient has gotten cefepime and vancomycin and has had cultures drawn. His lactic acid was negative. His blood pressure was normal, and he has some elevation of BNP, so no large amounts of fluids were given. We will run some gentle fluids. 2. Acute respiratory failure with evidence of bronchospasm. We will give some steroids and inhalers and see if this improves some of his symptoms. This may be related to infectious bronchitis. No evidence of pulmonary fluid on the CT scan. 3. Esophageal cancer, on chemotherapy. It sounds like his most recent treatment was about a week and a half ago. Uncertain if there is any residual immunosuppression from this. I have talked to Dr. Hernandez as Dr. Spann is out of town, and they will consult on the patient. They can wait to see him until tomorrow hopefully after the COVID test comes back negative. 4. Coronary artery disease with indeterminate troponins. We will watch on telemetry. No evidence of acute coronary syndrome right now. 5. Elevated brain natriuretic peptide. I will go and get an echocardiogram. No evidence of acute congestive failure at this time. 6. Atrial fibrillation. We will continue the patient's metoprolol. 7. Hypertension. Resume the patient's medications. 8. Hyperlipidemia. Resume the patient's statin. 9. Gastrointestinal prophylaxis. We will continue the patient's Protonix twice a day. 10. Deep venous thrombosis prophylaxis. Put the patient on Lovenox subcutaneously. 11. Code status: The patient is a full code. Should he be incapacitated, his son would be his medical decision maker. Job ID: [id number]
[2020-02-11] MEDS: Sodium Chloride 0.9% 1,000 ML IV SCH (18:35)
[2020-02-11] MEDS: methylPREDNISolone Sod Succ 40 MG VIAL IVP SCH (18:36)
[2020-02-11] MEDS: Metoprolol Tartrate 25 MG TAB PO SCH (20:37)
[2020-02-11] MEDS: Atorvastatin Calcium 40 MG TAB PO SCH (20:37)
[2020-02-11] MEDS ORDERED: Vancomycin 1 GM in Premix Bag 1 BAG IVPB SCH (23:00)
[2020-02-12] MEDS: Cefepime 2 GM in Sodium Chloride 0.9% 100 ML IVPB SCH ×3 (00:08→23:47)
[2020-02-12] MEDS: methylPREDNISolone Sod Succ 40 MG VIAL IVP SCH ×5 (00:08→23:47)
[2020-02-12 05:11] LABS: Anion Gap 13 mmol/L (10-20); BUN (Urea Nitrogen) 48 mg/dL (8.4-25.7); Calc. Creatinine Clearance 72 mL/min (70-130); Calcium 9.5 mg/dL (7.8-10.44); Carbon Dioxide 23 mmol/L (23-31); Chloride 109 mmol/L (98-107); Estimated GFR-MDRD 72; Glucose 168 mg/dL (83-110); Potassium 4.9 mmol/L (3.5-5.1); Sodium 140 mmol/L (136-145)
[2020-02-12 06:14] LABS: #Basophils 0.1 thou/uL (0.0-0.2); #Eosinphils 0.1 thou/uL (0.0-0.7); #Lymphocytes 2.7 thou/uL (1.20-3.40); #Monocytes 0.9 thou/uL (0.11-0.59); #Neutrophils 15.5 thou/uL (1.40-6.50); %Basophils 0.5 % (0.0-1.0); %Eosinophils 0.3 % (0.0-10.0); %Lymphocytes 13.8 % (21.0-51.0); %Monocytes 4.6 % (0.0-10.0); %Neutrophils 80.8 % (42.0-75.0); Anisocytosis SLIGHT = 6-15 cells (100X) (0-5/hpf); Elliptocytes SLIGHT = 2-5 cells (100X) (0-1/hpf); Hemoglobin 9.8 g/dL (14.0-18.0); MDiff Complete? YES; Mean Corpuscular HGB CONC 28.9 g/dL (32.0-36.0); Mean Corpuscular Hemoglobin 24.6 pg (27.0-31.0); Mean Platelet Volume 8.3 fL (7.4-10.4); Platelet Count 524 thou/uL (130-400); Platelet Morphology Comment Appears Increased; Red Blood Cell (RBC) Count 3.97 mill/uL (4.70-6.10); Tear Drops SLIGHT = 2-5 cells (100X) (0-1/hpf); White Blood Cell (WBC) Count 19.2 thou/uL (4.8-10.8)
[2020-02-12] MEDS: Ezetimibe 10 MG TAB PO SCH (08:50)
[2020-02-12] MEDS: Amlodipine 5 MG TAB PO SCH (08:50)
[2020-02-12] MEDS: Lisinopril 10 MG TAB PO SCH (08:50)
[2020-02-12] MEDS: Enoxaparin Sodium 40 MG/0.4 ML SYRINGE SC SCH (08:50)
[2020-02-12] MEDS: Metoprolol Tartrate 25 MG TAB PO SCH ×2 (08:50→21:13)
[2020-02-12] MEDS: Aspirin 81 mg Enteric Coated Tablet PO SCH (08:50)
[2020-02-12] MEDS: Albuterol Sulfate 2.5 mg/3 ml Neb NEB PRN (09:30)
[2020-02-12] MEDS: Sodium Chloride 0.9% 1,000 ML IV SCH (12:09)
--- NOTE | 2020-02-12 12:28 | PDOC.HOSPP ---
- Subjective Subjective: Patient seen and examined at bedside this morning reports a mild improvement in symptoms and her shortness of breath and cough denying any chest pain nausea or vomiting no significant overnight events, patient remained afebrile overnight with no significant overnight events - Objective Vital Signs & Weight: Vital Signs (12 hours) Temp Pulse Resp BP BP BP Pulse Ox 02/12/20 12:19 97.5 F L 95 22 H 111/62 92 L 02/12/20 09:30 109 H 20 02/12/20 09:10 137/73 152/74 H 02/12/20 08:50 138 H 02/12/20 08:45 97.5 F L 138 H 20 146/80 H 94 L 02/12/20 03:57 98.4 F 103 H 23 H 136/61 92 L Pulse Ox Pulse Ox 02/12/20 12:19 02/12/20 09:30 02/12/20 09:10 94 L 93 L 02/12/20 08:50 02/12/20 08:45 02/12/20 03:57 Weight Weight 190 lb 4.8 oz I&O: 02/11/20 02/12/20 02/13/20 06:59 06:59 06:59 Intake Total 1241 Output Total 250 Balance 991 Result Diagrams: 02/12/20 04:22 02/12/20 04:21 Hospitalist ROS - Medication Medications: Active Medications Generic Name Dose Route Start Last Admin Trade Name Freq PRN Reason Stop Dose Admin Albuterol Sulfate 2.5 mg 02/11/20 16:45 02/12/20 09:30 Ventolin NEB 2.5 mg Q4H PRN Administration Wheezing Amlodipine Besylate 5 mg 02/12/20 09:00 02/12/20 08:50 Norvasc PO 5 mg DAILY SANDOR Administration Aspirin 81 mg 02/12/20 09:00 02/12/20 08:50 Ecotrin PO 81 mg DAILY SANDOR Administration Atorvastatin Calcium 80 mg 02/11/20 21:00 02/11/20 20:37 Lipitor PO 80 mg HS SANDOR Administration Ezetimibe 10 mg 02/12/20 09:00 02/12/20 08:50 Zetia PO 10 mg DAILY SANDOR Administration Enoxaparin Sodium 40 mg 02/12/20 09:00 02/12/20 08:50 Lovenox SC 40 mg 0900 SADNOR Administration Cefepime HCl 2 gm/ Sodium 100 mls @ 200 mls/hr 02/11/20 23:00 02/12/20 12:09 Chloride IVPB 100 mls 1100,2300 SANDOR Administration Lisinopril 10 mg 02/12/20 09:00 02/12/20 08:50 Zestril PO 10 mg DAILY SANDOR Administration Methylprednisolone Sodium Succinate 40 mg 02/11/20 18:00 02/12/20 12:09 Solu-Medrol IVP 40 mg Q6HR SANDOR Administration Metoprolol Tartrate 25 mg 02/11/20 21:00 02/12/20 08:50 Lopressor PO 25 mg BID SANDOR Administration Pantoprazole Sodium 40 mg 02/11/20 21:00 02/12/20 08:50 Protonix PO 40 mg BID SANDOR Administration - Exam General Appearance: NAD, awake alert Eye: PERRL ENT: normocephalic atraumatic Neck: supple Heart: RRR, no murmur Respiratory: rales, rhonchi, wheezes Gastrointestinal: soft, non-tender Neurological: cranial nerve grossly intact Psychiatric: normal affect Hosp A/P (1) Sepsis Code(s): A41.9 - SEPSIS, UNSPECIFIED ORGANISM Status: Acute (2) CAD (coronary artery disease) Code(s): I25.10 - ATHSCL HEART DISEASE OF [place] CORONARY ARTERY W/O ANG PCTRS Status: Acute (3) Hypertension Code(s): I10 - ESSENTIAL (PRIMARY) HYPERTENSION Status: Acute (4) Atrial fibrillation Code(s): I48.91 - UNSPECIFIED ATRIAL FIBRILLATION Status: Acute (5) Esophageal dysphagia Code(s): R13.10 - DYSPHAGIA, UNSPECIFIED Status: Acute (6) Stomach cancer Status: Acute (7) PAD (peripheral artery disease) Code(s): I73.9 - PERIPHERAL VASCULAR DISEASE, UNSPECIFIED Status: Chronic - Plan We will continue treatment for possible sepsis from pulmonary source: We will continue with cefepime and vancomycin Follow-up cultures and adjust as needed Patient has remained afebrile overnight If continues to improve will de-escalate antibiotics COVID testing negative Leukocytosis with some improvement History of esophageal cancer on chemotherapy Most recent treatment was a 1 to 2 weeks ago Oncology has been consulted by admitting physician and they will evaluate today will follow further recommendations Elevated BNP Echocardiogram ordered pending we will follow on the results monitor for any signs of fluid overload Atrial fibrillation We will continue with metoprolol for rate control Hypertension continue with the home medication Dietitian Patient on home TPN will resume dietitian has been consulted will follow further recommendations DVT Lovenox Patient is full code is his surrogate Disposition depending on clinical improvement:Cultures and further hematology oncology recommendation patient will probably need another 1 to 2 days of hospital stay
[2020-02-12 13:16] LABS: Anion Gap 14 mmol/L (10-20); BUN (Urea Nitrogen) 56 mg/dL (8.4-25.7); Calc. Creatinine Clearance 61 mL/min (70-130); Calcium 9.6 mg/dL (7.8-10.44); Carbon Dioxide 22 mmol/L (23-31); Chloride 109 mmol/L (98-107); Estimated GFR-MDRD 59; Glucose 212 mg/dL (83-110); Potassium 4.7 mmol/L (3.5-5.1); Sodium 140 mmol/L (136-145)
[2020-02-12 13:18] LABS: #Basophils 0.1 thou/uL (0.0-0.2); #Eosinphils 0.1 thou/uL (0.0-0.7); #Lymphocytes 3.1 thou/uL (1.20-3.40); #Monocytes 1.5 thou/uL (0.11-0.59); #Neutrophils 14.4 thou/uL (1.40-6.50); %Basophils 0.6 % (0.0-1.0); %Eosinophils 0.3 % (0.0-10.0); %Lymphocytes 16.3 % (21.0-51.0); %Monocytes 7.7 % (0.0-10.0); Hemoglobin 10.1 g/dL (14.0-18.0); Mean Corpuscular HGB CONC 29.3 g/dL (32.0-36.0); Mean Corpuscular Hemoglobin 25.2 pg (27.0-31.0); Mean Platelet Volume 7.9 fL (7.4-10.4); Platelet Count 514 thou/uL (130-400); Red Blood Cell (RBC) Count 4.02 mill/uL (4.70-6.10); White Blood Cell (WBC) Count 19.2 thou/uL (4.8-10.8)
[2020-02-12 14:00] VITALS: BMI 26.5
[2020-02-12] MEDS: Vancomycin HCl 1.25 GM in Sodium Chloride 0.9% 250 ML 250 ML IVPB SCH (14:15)
--- NOTE | 2020-02-12 19:52 | CON ---
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 He was found to have a stage 4 disease with peritoneal metastasis. He is HER2 negative. He has been on chemotherapy with oxaliplatin and infusional 5-FU. The last cycle, which was #6 was administered on 01/11/2020. He was admitted on February 10 with shortness of breath, progressive weakness, and was found to have leukocytosis with a WBC of 22,000. He was felt to have sepsis and was started on cefepime and vancomycin. He did not have any fever in the hospital. He was tested for COVID, which returned negative today. The patient is actually feeling better today, though he still complains of severe fatigue. PAST MEDICAL HISTORY: Positive for hypertension and coronary artery disease in 2006. PERSONAL, FAMILY, AND SOCIAL HISTORY: The patient is and lives alone. He has three children and is a former smoker. 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 CURRENT MEDICATIONS: 1. Amlodipine. 2. Lipitor. 3. Cefepime. 4. Lovenox. 5. Zetia. 6. Zestril. 7. Solu-Medrol. 8. Lopressor. 9. Remeron. 10. Protonix. 11. Zofran. 12. Vancomycin. PHYSICAL EXAMINATION: GENERAL: The patient appears somewhat younger than his chronologic age and he is alert and oriented. VITAL SIGNS: Temperature 98.1, pulse 96, respirations 20, and blood pressure 117/65. HEENT: Unremarkable. Lymph nodes not palpable in cervical, supraclavicular, axillary, or inguinal area. CHEST: Clear to percussion and auscultation. HEART: Regular rhythm. S1 and S2. ABDOMEN: Soft. LABORATORY DATA: CBC today showed WBC of 19.2, which is improvement over the admitting CBC of 22.2. Hemoglobin is 10.1 and platelet count is 514,000. Differential shows 75% neutrophils. Chemistry profile shows normal sodium and potassium. Creatinine 1.18, BUN 56, and blood sugar this morning was 212. CT scan of the chest on February 10 showed moderate right and small left pleural effusion similar to prior study. There was a persistent area of consolidation in the right lower lobe suggestive of partial collapse and there was thickening involving the distal esophagus and cardia of the stomach. Reticulonodular appearance was noted in the mesentery suggestive of carcinomatosis and moderate ascites was present. Blood cultures are negative so far. 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 Clinical picture at the time of presentation is highly suggestive of sepsis. His current antibiotics should be continued. Others symptomatic and supportive treatment should also be continued. Thanks very much for asking me to participate in this patient's care. He will be followed by Oncology Service. Job ID: [id number]
[2020-02-12] MEDS: Atorvastatin Calcium 40 MG TAB PO SCH (21:13)
[2020-02-12] MEDS: Fat Emulsion 250 ML, Sodium Acetate 2 mEq/ml 40 MEQ, Sodium Chloride 30 MEQ, Potassium ... IV SCH (23:47)
[2020-02-13] MEDS: Albuterol Sulfate 2.5 mg/3 ml Neb NEB PRN (04:29)
[2020-02-13] MEDS: methylPREDNISolone Sod Succ 40 MG VIAL IVP SCH ×4 (05:22→23:54)
[2020-02-13] MEDS: Enoxaparin Sodium 40 MG/0.4 ML SYRINGE SC SCH (08:13)
[2020-02-13] MEDS: Lisinopril 10 MG TAB PO SCH (08:14)
[2020-02-13] MEDS: Aspirin 81 mg Enteric Coated Tablet PO SCH (08:14)
[2020-02-13] MEDS: Ezetimibe 10 MG TAB PO SCH (08:14)
[2020-02-13] MEDS: Amlodipine 5 MG TAB PO SCH (08:14)
[2020-02-13] MEDS: Metoprolol Tartrate 25 MG TAB PO SCH ×2 (08:14→20:11)
--- NOTE | 2020-02-13 09:46 | PDOC.HOSPP ---
- Subjective Encounter Date: 02/13/20 Encounter Time: 09:44 Subjective: Mr. Maddox was seen today in follow-up of respiratory failure and esophageal cancer. He is more short of breath this morning. He denies chest pain but says " I just can't breath ". - Objective Vital Signs & Weight: Vital Signs (12 hours) Temp Pulse Resp BP Pulse Ox 02/13/20 08:29 97.8 F 104 H 20 147/71 H 94 L 02/13/20 08:14 120 H 02/13/20 07:59 94 L 02/13/20 07:58 120 H 36 H 02/13/20 04:29 97 02/13/20 04:00 97.5 F L 99 28 H 139/95 H 95 02/13/20 03:49 92 L 02/13/20 00:28 97 02/12/20 23:02 97.6 F 92 24 H 124/67 97 Weight Admit Weight 190 lb 4.8 oz Weight 190 lb 4.8 oz I&O: 02/12/20 02/13/20 02/14/20 06:59 06:59 06:59 Intake Total 1241 720 Output Total 250 40 Balance 991 680 Result Diagrams: 02/12/20 12:42 02/12/20 12:42 Hospitalist ROS - Medication Medications: Active Medications Generic Name Dose Route Start Last Admin Trade Name Freq PRN Reason Stop Dose Admin Albuterol Sulfate 2.5 mg 02/11/20 16:45 02/13/20 04:29 Ventolin NEB 2.5 mg Q4H PRN Administration Wheezing Albuterol/Ipratropium 3 ml 02/13/20 01:00 02/13/20 07:58 Duoneb NEB 3 ml [id number] SANDOR Administration Amlodipine Besylate 5 mg 02/12/20 09:00 02/13/20 08:14 Norvasc PO 5 mg DAILY SANDOR Administration Aspirin 81 mg 02/12/20 09:00 02/13/20 08:14 Ecotrin PO 81 mg DAILY SANDOR Administration Atorvastatin Calcium 80 mg 02/11/20 21:00 02/12/20 21:13 Lipitor PO 80 mg HS SANDOR Administration Ezetimibe 10 mg 02/12/20 09:00 02/13/20 08:14 Zetia PO 10 mg DAILY SANDOR Administration Enoxaparin Sodium 40 mg 02/12/20 09:00 02/13/20 08:13 Lovenox SC 40 mg 0900 SANDOR Administration Cefepime HCl 2 gm/ Sodium 100 mls @ 200 mls/hr 02/11/20 23:00 02/12/20 23:47 Chloride IVPB 100 mls 1100,2300 SANDOR Administration Vancomycin HCl 1.25 gm/ Sodium 250 mls @ 166.667 mls/hr 02/12/20 12:00 14:15 Chloride IVPB 250 mls 1200 SANDOR Administration Fat Emulsion Intravenous 250 2,132.7021 mls @ 88.863 mls/hr 02/12/20 22:00 23:47 ml/ Sodium Acetate 40 meq/ IV 2,132.7021 mls Sodium Chloride 30 meq/ 2200 SANDOR Administration Potassium Chloride 20 meq/ Potassium Phosphate 30 mmol/ Calcium Gluconate 10 meq/ Magnesium Sulfate 10 meq/ Multivitamins 10 ml/ Chromium/ Copper/Manganese/Zinc 1 ml/ Dextrose/Water/ Sterile Water/ Amino Acids Lisinopril 10 mg 02/12/20 09:00 02/13/20 08:14 Zestril PO 10 mg DAILY SANDOR Administration Methylprednisolone Sodium Succinate 40 mg 02/11/20 18:00 02/13/20 05:22 Solu-Medrol IVP 40 mg Q6HR SANDOR Administration Metoprolol Tartrate 25 mg 02/11/20 21:00 02/13/20 08:14 Lopressor PO 25 mg BID SANDOR Administration Pantoprazole Sodium 40 mg 02/11/20 21:00 02/13/20 08:13 Protonix PO 40 mg BID SANDOR Administration - Exam General Appearance: NAD, awake alert Eye: PERRL, anicteric sclera Heart: RRR, no murmur, no gallops, no rubs, normal peripheral pulses Respiratory: rales, rhonchi, wheezes (has rales at the basesScattered rhonchi and wheezing. He) Gastrointestinal: soft, non-tender, non-distended, normal bowel sounds Extremities: 1+ LE edema Hosp A/P (1) Acute respiratory failure with hypoxia Code(s): J96.01 - ACUTE RESPIRATORY FAILURE WITH HYPOXIA Status: Acute (2) Esophageal cancer Status: Chronic (3) CAD (coronary artery disease) Code(s): I25.10 - ATHSCL HEART DISEASE OF [place] CORONARY ARTERY W/O ANG PCTRS Status: Chronic (4) Hypertension Code(s): I10 - ESSENTIAL (PRIMARY) HYPERTENSION Status: Acute (5) Atrial fibrillation Code(s): I48.91 - UNSPECIFIED ATRIAL FIBRILLATION Status: Acute - Plan * Acute respiratory failure- He is very tachypneic, and has trouble leaving high flow oxygen on. Chest X-ray was reviewed. and ABG has been ordered. I have discussed his medical case with Dr. Hoyos, and he recommends transferring the patient to the ICU for closer monitoring. Continue Duonebs and steroids. * Will continue IV antibiotics for presumed pulmonary infection * Sepsis- as above, and will check an ABG * Esophageal Cancer- as per Oncology * HTN- blood pressure is stable * AFIB- his heart rate is variable, but regular- will monitor- patient is not on anticoagulation * Continue DVT and GI Prophylaxis
[2020-02-13 10:07] LABS: Actual Bicarbonate (HCO3a) 17.7 mEq/L (22-28); Base Excess (BEa) -8.5 mEq/L (-2.0 to +3.0); CO2 Tension 39.2 mmHg (35.0-45.0); Calcium, Ionized (arterial) 1.34 mmol/L (1.12-1.30); Carboxyhemoglobin (COHb) 0.1 gm% (0.0-3.0); Hemoglobin (Hb) 10.6 g/dL (14.0-18.0); Potassium - ABG Lab 4.77 mmol/L (3.70-5.30); pH, Arterial 7.27 (7.35-7.45)
[2020-02-13 10:11] LABS: O2 Tension (PaO2), arterial 51.9 mmHg (> 60.0); Puncture Site RR
--- NOTE | 2020-02-13 10:26 | RAD ---
PORTABLE CHEST: DATE: 02/13/2020. PROVIDED CLINICAL HISTORY: Shortness of breath. FINDINGS: Comparison 02/11/2020. Cardiac and mediastinal silhouette is unchanged in appearance. Right basilar p leural parenchymal opacity appears similar to prior. Left lung appears clear. Right upper extremity PICC line is again seen in similar position. There is no evidence for pneumothorax. IMPRESSION: Similar radiographic appearance of the chest. POS: NIKKIE
[2020-02-13] MEDS: Cefepime 2 GM in Sodium Chloride 0.9% 100 ML IVPB SCH ×2 (11:20→23:54)
[2020-02-13 11:59] LABS: Vancomycin, Trough 11.6 ug/mL
[2020-02-13 12:32] LABS: Albumin 2.4 g/dL (3.4-4.8)
[2020-02-13 12:33] LABS: Chloride 110 mmol/L (98-107); Potassium 5.6 mmol/L (3.5-5.1); Sodium 137 mmol/L (136-145)
[2020-02-13 12:34] LABS: Calcium 9.3 mg/dL (7.8-10.44); Glucose 355 mg/dL (83-110)
[2020-02-13 12:35] LABS: Globulin 3.3 g/dL (2.4-3.5)
[2020-02-13 12:36] LABS: Anion Gap 14 mmol/L (10-20); Bilirubin, Total 0.3 mg/dL (0.2-1.2); Carbon Dioxide 19 mmol/L (23-31)
[2020-02-13 12:37] LABS: Alkaline Phosphatase 148 U/L (40-110)
[2020-02-13 12:38] LABS: Calc. Creatinine Clearance 51 mL/min (70-130); Estimated GFR-MDRD 48
[2020-02-13 12:39] LABS: BUN (Urea Nitrogen) 76 mg/dL (8.4-25.7)
[2020-02-13 12:40] LABS: ALT (SGPT) 29 U/L (8-55); AST (SGOT) 45 U/L (5-34)
[2020-02-13 12:46] LABS: Protein, Total 5.7 g/dL (5.8-8.1)
[2020-02-13 12:57] LABS: Band 2 % (5-11); Hemoglobin 8.8 g/dL (14.0-18.0); Lymphocytes 7 % (21-51); MDiff Complete? YES; Mean Corpuscular HGB CONC 29.6 g/dL (32.0-36.0); Mean Corpuscular Hemoglobin 25.2 pg (27.0-31.0); Mean Corpuscular Volume 85.2 fL (78.0-98.0); Mean Platelet Volume 8.4 fL (7.4-10.4); Monocytes 3 % (0-10); Neutrophil 88 % (42-75); Nucleated RBC 1 % (0); Ovalocytes SLIGHT = 2-5 cells (100X) (0-1/hpf); Platelet Count 505 thou/uL (130-400); Poikilocytosis SLIGHT = 6-15 cells (100X) (0-5/hpf); RBC Distribution Width 18.1 % (11.5-14.5); Red Blood Cell (RBC) Count 3.47 mill/uL (4.70-6.10); White Blood Cell (WBC) Count 26.8 thou/uL (4.8-10.8)
[2020-02-13] MEDS ORDERED: Vancomycin 1.5 GRAM/300 ML BAG 1.5 GM in Premix Bag 1 BAG IVPB SCH (13:00)
[2020-02-13 13:28] LABS: RBC Count-Automated (BF) 117469 /cu.mm; WBC/Nucleated-Auto (BF) 4068 uL
[2020-02-13 13:32] LABS: BF Color Red; Body Fluid Source Pleural Fluid; Clarity Cloudy/Turbid (Clear); Tube # EDTA
[2020-02-13 14:03] LABS: BF Segmented Neutrophils 50 %; Cell Count Non Hematic 45 %; Lymphocytes 4 %
[2020-02-13] MEDS: Vancomycin HCl 1.25 GM in Sodium Chloride 0.9% 250 ML 250 ML IVPB SCH (14:53)
[2020-02-13] MEDS: Atorvastatin Calcium 40 MG TAB PO SCH (20:06)
[2020-02-13] MEDS: Fat Emulsion 250 ML, Sodium Acetate 2 mEq/ml 40 MEQ, Sodium Chloride 30 MEQ, Potassium ... IV SCH (22:25)
--- NOTE | 2020-02-14 00:26 | CON ---
DATE OF CONSULTATION: 02/13/2020 HISTORY OF PRESENT ILLNESS: Shukri Maddox is an 79-year-old male. He was admitted with complaints of shortness of breath. He had a massive effusion on admitting CT. He subsequently has been transferred to critical care unit because of progressive shortness of breath. I was consulted. PAST MEDICAL HISTORY: Remarkable for; 1. Esophageal cancer. 2. History of coronary artery disease. 3. History of peripheral vascular disease. 4. Esophageal cancer. 5. History of hypertension. 6. Lipid disorder. 7. History of atrial fibrillation. 8. 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 9. History of PICC line placement. 10. History of subclavian MediPort. 11. History of esophageal stent implantation and removal. SOCIAL HISTORY: Pack and half a day of smoker. Not a heavy drinker. FAMILY HISTORY: Positive for malignancy. PHYSICAL EXAMINATION: GENERAL: He is confused. VITAL SIGNS: His respiratory rate was in the 30s when I met him. Heart rate was in the 90s. HEAD AND NECK: Unremarkable. LUNGS: Remarkable for absent breath sounds jail up on the right. Left lung was remarkable for decreased breath sounds, left base. HEART: Regular rhythm. ABDOMEN: Soft and nontender. EXTREMITIES: Without clubbing, cyanosis, or edema. LABORATORY DATA: White count 26.8, hemoglobin 8.8, and platelets 505,000. Sodium 137, potassium 5.6, chloride 110, bicarb 19, BUN 76, and creatinine 1.41. IMPRESSION AND PLAN: Massive effusion, most likely malignant. Plan emergent thoracentesis. He agreed to proceed. A 70 minutes consult, 50% of the time was spent in coordinating care. Job ID: [id number] [facility]
[2020-02-14] MEDS: methylPREDNISolone Sod Succ 40 MG VIAL IVP SCH ×2 (06:30→12:41)
[2020-02-14] MEDS ORDERED: Insulin Glargine 12 UNITS in Pre-Filled Syringe 1 EACH SC SCH ×2 (09:00→21:00)
--- NOTE | 2020-02-14 09:03 | PDOC.HOSPP ---
- Subjective Encounter Date: 02/14/20 Encounter Time: 08:57 Subjective: Mr. Maddox was seen today in follow-up of respiratory failure. He is breathing better today. He denies any chest pain. He is still a bit confused, but knows he is in " a health place". He knows the year, but was not able to spontaneously offer the month. - Objective Vital Signs & Weight: Vital Signs (12 hours) Temp Pulse Resp Pulse Ox 02/14/20 08:17 92 L 02/14/20 08:14 100 22 H 95 02/14/20 04:00 97.7 F 02/14/20 01:42 95 02/14/20 00:00 98.1 F 02/13/20 23:40 92 32 H 98 02/13/20 22:42 97 Weight Admit Weight 190 lb 4.8 oz Weight 190 lb 4.8 oz Most Recent Monitor Data Heart Rate from ECG 88 NIBP 133/61 NIBP BP-Mean 85 Respiration from ECG 22 SpO2 93 I&O: 02/13/20 02/14/20 02/15/20 06:59 06:59 06:59 Intake Total 720 2645 Output Total 40 1476 0 Balance 680 1169 0 Result Diagrams: 02/13/20 12:10 02/13/20 12:10 Additional Labs: Accuchecks 02/14/20 02/13/20 06:36 22:45 POC Glucose 302 H 277 H Hospitalist ROS - Medication Medications: Active Medications Generic Name Dose Route Start Last Admin Trade Name Freq PRN Reason Stop Dose Admin Albuterol Sulfate 2.5 mg 02/11/20 16:45 02/13/20 04:29 Ventolin NEB 2.5 mg Q4H PRN Administration Wheezing Albuterol/Ipratropium 3 ml 02/13/20 01:00 02/14/20 08:14 Duoneb NEB 3 ml [id number] SANDOR Administration Amlodipine Besylate 5 mg 02/12/20 09:00 02/13/20 08:14 Norvasc PO 5 mg DAILY SANDOR Administration Aspirin 81 mg 02/12/20 09:00 02/13/20 08:14 Ecotrin PO 81 mg DAILY SANDOR Administration Atorvastatin Calcium 80 mg 02/11/20 21:00 02/13/20 20:06 Lipitor PO 80 mg HS SANDOR Administration Ezetimibe 10 mg 02/12/20 09:00 02/13/20 08:14 Zetia PO 10 mg DAILY SANDOR Administration Enoxaparin Sodium 40 mg 02/12/20 09:00 02/13/20 08:13 Lovenox SC 40 mg 0900 SANDOR Administration Cefepime HCl 2 gm/ Sodium 100 mls @ 200 mls/hr 02/11/20 23:00 02/13/20 23:54 Chloride IVPB 100 mls 1100,2300 SANDOR Administration Fat Emulsion Intravenous 250 2,132.7021 mls @ 88.863 mls/hr 02/12/20 22:00 22:25 ml/ Sodium Acetate 40 meq/ IV 02/14/20 22:01 2,132.7021 mls Sodium Chloride 30 meq/ 2200 SANDOR Administration Potassium Chloride 20 meq/ Potassium Phosphate 30 mmol/ Calcium Gluconate 10 meq/ Magnesium Sulfate 10 meq/ Multivitamins 10 ml/ Chromium/ Copper/Manganese/Zinc 1 ml/ Dextrose/Water/ Sterile Water/ Amino Acids Lisinopril 10 mg 02/12/20 09:00 02/13/20 08:14 Zestril PO 10 mg DAILY SANDOR Administration Methylprednisolone Sodium Succinate 40 mg 02/11/20 18:00 02/14/20 06:30 Solu-Medrol IVP 40 mg Q6HR SANDOR Administration Metoprolol Tartrate 25 mg 02/11/20 21:00 02/13/20 20:11 Lopressor PO 25 mg BID SANDOR Administration Pantoprazole Sodium 40 mg 02/11/20 21:00 02/13/20 20:06 Protonix PO 40 mg BID SANDOR Administration - Exam Eye: PERRL, anicteric sclera Heart: RRR, no murmur, no gallops, no rubs, normal peripheral pulses Respiratory: rhonchi (decreased breath sounds at the bases) Gastrointestinal: soft, non-tender, non-distended, normal bowel sounds, no palpable masses Extremities: no cyanosis, 1+ LE edema Hosp A/P (1) Acute respiratory failure with hypoxia Code(s): J96.01 - ACUTE RESPIRATORY FAILURE WITH HYPOXIA Status: Acute (2) Esophageal cancer Status: Chronic (3) CAD (coronary artery disease) Code(s): I25.10 - ATHSCL HEART DISEASE OF [place] CORONARY ARTERY W/O ANG PCTRS Status: Chronic (4) Hypertension Code(s): I10 - ESSENTIAL (PRIMARY) HYPERTENSION Status: Acute (5) Atrial fibrillation Code(s): I48.91 - UNSPECIFIED ATRIAL FIBRILLATION Status: Acute - Plan * Acute respiratory failure- due to pleural effusion. This has been drained, and he is feeling and breathing better * Will continue IV antibiotics for presumed pulmonary infection * He is stable for transfer to Oncology floor * Esophageal Cancer- as per Oncology * HTN- blood pressure is stable * AFIB- his heart rate is variable, but regular- will monitor- patient is not on anticoagulation * Continue DVT and GI Prophylaxis * Unclear what his overall prognosis is. Especially if this effusion turns out to be a malignant pleural effusion. Will discuss with Oncologist. Will also consult Palliative care to help assess his goals of care.
[2020-02-14 09:14] LABS: Anion Gap 16 mmol/L (10-20); BUN (Urea Nitrogen) 83 mg/dL (8.4-25.7); Calc. Creatinine Clearance 57 mL/min (70-130); Calcium 9.9 mg/dL (7.8-10.44); Carbon Dioxide 20 mmol/L (23-31); Chloride 107 mmol/L (98-107); Estimated GFR-MDRD 55; Glucose 300 mg/dL (83-110); Potassium 4.9 mmol/L (3.5-5.1); Sodium 138 mmol/L (136-145)
[2020-02-14 09:26] LABS: Anisocytosis SLIGHT = 6-15 cells (100X) (0-5/hpf); Band 4 % (5-11); Hemoglobin 9.7 g/dL (14.0-18.0); Lymphocytes 15 % (21-51); MDiff Complete? YES; Mean Corpuscular HGB CONC 30.2 g/dL (32.0-36.0); Mean Corpuscular Hemoglobin 25.7 pg (27.0-31.0); Mean Corpuscular Volume 85.3 fL (78.0-98.0); Mean Platelet Volume 8.3 fL (7.4-10.4); Monocytes 4 % (0-10); Neutrophil 77 % (42-75); Platelet Count 530 thou/uL (130-400); RBC Distribution Width 18.4 % (11.5-14.5); Red Blood Cell (RBC) Count 3.75 mill/uL (4.70-6.10); White Blood Cell (WBC) Count 31.3 thou/uL (4.8-10.8)
[2020-02-14] MEDS: Metoprolol Tartrate 25 MG TAB PO SCH ×2 (10:00→20:57)
[2020-02-14] MEDS: Ezetimibe 10 MG TAB PO SCH (10:00)
[2020-02-14] MEDS: Enoxaparin Sodium 40 MG/0.4 ML SYRINGE SC SCH (10:01)
[2020-02-14] MEDS: Amlodipine 5 MG TAB PO SCH (10:01)
[2020-02-14] MEDS: Lisinopril 10 MG TAB PO SCH (10:06)
[2020-02-14] MEDS: Aspirin 81 mg Enteric Coated Tablet PO SCH (10:06)
[2020-02-14] MEDS: Cefepime 2 GM in Sodium Chloride 0.9% 100 ML IVPB SCH ×2 (12:36→22:22)
--- NOTE | 2020-02-14 13:32 | OP ---
DATE OF PROCEDURE: 02/13/2020 PROCEDURE PERFORMED: Thoracentesis. DESCRIPTION OF PROCEDURE: The patient was placed on high-flow oxygen. He was placed in the sitting position, leaning over bedside table. His right posterior hemithorax was cleansed with chlorhexidine. A 10 mL of 1% lidocaine was used to anesthetize the skin and the pleura. An 8-[place] [id number] catheter was inserted in the pleural space without difficulty. A 2 L of bloody fluid was evacuated, sent for the appropriate studies. No air was aspirated, so there is no clinical indication for chest x-ray postprocedure. He felt 100% better after the procedure. He was no longer tachypneic. Job ID: [id number]
--- NOTE | 2020-02-14 14:05 | PRG ---
DATE OF SERVICE: 02/14/2020 SUBJECTIVE: Mr. Maddox did well overnight. The thoracentesis made a huge difference in his work of breathing. OBJECTIVE: VITAL SIGNS: He is afebrile. Heart rate is in 80s respiratory rates in the 20s, oximetry is 95% on 4 L cannula, blood pressure 125/72. LUNGS: Remarkable for improvement of his aeration of his right chest. He has no wheezes HEART: Regular rhythm. ABDOMEN: Soft. LABORATORY DATA: White count 31.3, hemoglobin 9.7, platelets 530. BUN is 83, creatinine 1.27, glucose 300 this morning. IMPRESSION: Malignant effusion most likely given the pH of 7.20 and its bloody appearance, it is highly likely that this will recur relatively quickly. It is unlikely that his pleural fluid is infected. I do not feel we are dealing with pneumonia. His preliminary pleural fluid cultures are negative. His antibiotics can be simplified. He is stable to move out of the Critical Care Unit. We will stop the IV steroids, which should lead to some improvement in his blood glucoses. I think his shortness of breath is all related to compression of that right lung which has dramatically improved. He may end up needing a tunneled catheter if he has a rapid recurrence of his effusion. Job ID: [id number]
[2020-02-14] MEDS ORDERED: Dextrose 50% Abboject 50 ML SYRINGE SLOW IVP PRN (16:31)
[2020-02-14] MEDS ORDERED: Dextrose 5% in Water 1,000 ML IV PRN (16:31)
[2020-02-14] MEDS ORDERED: HumaLOG 300 UNITS/3 ML VIAL SC PRN (16:31)
[2020-02-14] MEDS: HumaLOG 300 UNITS/3 ML VIAL SC PRN (17:10)
[2020-02-14] MEDS: Atorvastatin Calcium 40 MG TAB PO SCH (20:56)
[2020-02-14] MEDS: Fat Emulsion 250 ML, Sodium Acetate 2 mEq/ml 40 MEQ, Sodium Chloride 30 MEQ, Potassium ... IV SCH ×2 (22:08→22:15)
--- NOTE | 2020-02-15 00:35 | PDOC.EVN ---
Event Note - Event Note Event Note: Nurse called, patient tachypneic 40s, tachycardic 110s (been tachycardic), hypoxic 88% 5L NC. Was on high flow yesterday. He is afebrile. Baseline neurologically. Had thoracentesis yesterday, 2L off. Denies chest pain. Is anticoagulated LMWH. Will check EKG and CXR.
[2020-02-15] MEDS ORDERED: Furosemide 40 MG/4 ML VIAL SLOW IVP SCH (02:00)
[2020-02-15] MEDS ORDERED: methylPREDNISolone Sod Succ/PF 125 MG/2 ML VIAL IVP SCH (02:06)
--- NOTE | 2020-02-15 02:11 | PDOC.EVN ---
Event Note - Event Note Event Note: called for patient having labored breathing. on auscultation he does have bilateral exp ronchi, decreased air entry bilaterally. cxr seems unchanged. I will give lasix and solu-medrol if he does not response, I plan to transfer ICU and start BIPAP. ADDENDUM: CT chest result was noted, will start patient on full dose Lovenox and expand ATB coverage by adding Vancomycin. patient is currently doing better on BIPAP.
[2020-02-15 04:05] LABS: Anion Gap 15 mmol/L (10-20); BUN (Urea Nitrogen) 84 mg/dL (8.4-25.7); Calc. Creatinine Clearance 58 mL/min (70-130); Calcium 10.2 mg/dL (7.8-10.44); Carbon Dioxide 22 mmol/L (23-31); Chloride 106 mmol/L (98-107); Estimated GFR-MDRD 57; Glucose 299 mg/dL (83-110); Potassium 4.6 mmol/L (3.5-5.1); Sodium 138 mmol/L (136-145)
[2020-02-15 04:54] LABS: Band 4 % (5-11); Lymphocytes 14 % (21-51); MDiff Complete? YES; Mean Corpuscular HGB CONC 30.5 g/dL (32.0-36.0); Mean Corpuscular Hemoglobin 25.7 pg (27.0-31.0); Mean Corpuscular Volume 84.2 fL (78.0-98.0); Mean Platelet Volume 8.6 fL (7.4-10.4); Monocytes 8 % (0-10); Neutrophil 74 % (42-75); Platelet Count 504 thou/uL (130-400); RBC Distribution Width 18.3 % (11.5-14.5)
[2020-02-15] MEDS: HumaLOG 300 UNITS/3 ML VIAL SC PRN ×2 (05:00→16:56)
[2020-02-15] MEDS: Vancomycin HCl 750 MG in Sodium Chloride 0.9% 250 ML 250 ML IVPB SCH ×2 (06:18→18:21)
--- NOTE | 2020-02-15 08:04 | CT ---
PRELIMINARY REPORT/[facility]/EMERGENCY AFTER HOURS PROCEDURE This report was discussed with Su Gallardo RN by Margarette Go on Feb 15, 2020 04:00:00 CDT. Addendum electronically signed by Margarette Go on February 15, 2020 4:00:49 AM CDT EXAM: CTA Chest with Intravenous Contrast CLINICAL HISTORY: DYSPNEA, TACHYCARDIA TECHNIQUE: Axial CTA images of the chest with intravenous contrast. Three-dimensional MIP/volume rendered reform ations were performed. CONTRAST: With; 70ML ISOVUE 370 COMPARISON: None provided. FINDINGS: PULMONARY ARTERIES There is a small filling defect in the segmental and subsegmental pulmonary arterial extending into t he lingula (series 2, image 53) compatible with a small pulmonary embolism AORTA Calcified and noncalcified atherosclerotic plaque of the aorta. LUNGS Diffuse reticular thickening predominantly in the left lung with scattered groundglass haziness and m ore solid confluence in the posterior left upper lobe and left lower lobe. Reticular thickening, groundglass haziness and small subpleural patchy opacity in the right lower lob e. PLEURAL SPACES Moderate right pleural effusion with adjacent atelectasis at the left base. Small left pleural effusi on with adjacent atelectasis at the left lung base. HEART AND MEDIASTINUM No cardiomegaly. No significant pericardial effusion. Right-sided central line with tip in the SVC. LYMPH NODES Right hilar lymph node measuring up to 1.1 cm in short axis. BONES No focal osseous abnormality or acute fracture. CHEST WALL AND UPPER ABDOMEN Cirrhosis. Moderate upper abdominal ascites. Moderate hiatal hernia. Right-sided central line with tip in the SVC. IMPRESSION: There is a small filling defect in the segmental and subsegmental pulmonary arterial extending into t he lingula compatible with a small pulmonary embolism Diffuse reticular thickening predominantly in the left lung with scattered groundglass haziness and m ore solid confluence in the posterior left upper lobe and left lower lobe. Findings are concerning for an acute process which may be infectious or inflammatory. Moderate right pleural effusion with adjacent atelectasis at the left base. Small left pleural effusi on with adjacent atelectasis at the left lung base . Cirrhosis with moderate upper abdominal ascites. ELECTRONICALLY SIGNED BY: Sari Pelayo MD Feb 15, 2020 3:45:58 AM CDT This report is intended for review by the ordering physician only, in accordance of law. If you recei ve this report in error, please call [facility] at [phone]. FINAL REPORT Exam: CT angiogram of the chest HISTORY: Shortness of breath. Dyspnea and tachycardia. COMPARISON: 02/11/2020 TECHNIQUE: CT angiogram of the chest is performed in the axial plane. Three-dimensional reformatted i mages are submitted for interpretation FINDINGS: Mediastinum: No mass, lymphadenopathy or hematoma. HEART: Normal size. No significant pericardial fluid. Aorta: No aneurysm or dissection Upper solid abdominal viscera: No abnormality. There is evidence of ascites. Trachea and central bronchi: Patent Pleural spaces: Stable moderate right and small left pleural effusion Lung parenchyma: Worsening opacities involving the lung parenchyma. There are extensive groundglass o pacities involving the left upper lobe, left lower lobe. Stable consolidation in the middle lobe and right lower lobe. Pneumothorax: None Osseous structures: No lytic or blastic lesions Pulmonary arteries: Adequate contrast opacification pulmonary arterial system to the level of segment al arteries. No small nonocclusive filling defect involving the pulmonary artery system at the level of the lingula IMPRESSION: 1. This report is in agreement with initial report by [facility]. 2. Very small nonocclusive thrombus involving a segmental branch's at the level of the lingula. 3. Lung parenchymal changes and pleural effusions as described above and initial report by [facility]. Transcribed Date/Time: 02/15/2020 9:26 AM
--- NOTE | 2020-02-15 08:10 | RAD ---
PORTABLE CHEST: Date: 02/15/2020 PROVIDED CLINICAL HISTORY: Hypoxia. FINDINGS: Comparison with 02/13/2020. More conspicuous air space disease in the left suprahilar region. Interval improvement in right basil ar pleural parenchymal opacity. There is no evidence for pneumothorax. Right-sided implanted port is again seen. IMPRESSION: Increase in conspicuity of the left suprahilar air space disease. Please correlate with subsequently performed chest CT. POS: NIKKIE
[2020-02-15] MEDS ORDERED: LYTE IN TPN IVPB PRN (08:48)
[2020-02-15] MEDS ORDERED: Vancomycin HCl 1.25 GM in Sodium Chloride 0.9% 250 ML 300 ML IVPB SCH (09:00)
[2020-02-15] MEDS ORDERED: Insulin Glargine 20 UNITS in Pre-Filled Syringe 1 EACH SC SCH ×2 (09:00→21:00)
[2020-02-15] MEDS ORDERED: Enoxaparin Sodium 100 MG/ML SYRINGE SC SCH (09:00)
[2020-02-15 09:14] LABS: Magnesium 2.9 mg/dL (1.6-2.6); Phosphorus 3.7 mg/dL (2.3-4.7)
[2020-02-15] MEDS ORDERED: Iopamidol 370 76% 100 ML VIAL ONE (09:41)
--- NOTE | 2020-02-15 10:09 | PDOC.HOSPP ---
- Subjective Encounter Date: 02/15/20 Encounter Time: 10:07 Subjective: Mr. Maddox was seen today in follow-up of respiratory failure. The events of last night were noted. He developed more dyspnea. A CT scan and Xray were done. He has been moved to the [facility], and placed on BiPAP, and Vancomycin has been added to his regimen. - Objective Vital Signs & Weight: Vital Signs (12 hours) Temp Pulse Resp BP Pulse Ox 02/15/20 08:48 99 32 H 92 L 02/15/20 08:47 100 26 H 93 L 02/15/20 07:39 94 L 02/15/20 07:19 98.0 F 02/15/20 04:39 97.5 F L 02/15/20 03:34 93 L 02/15/20 03:17 95 27 H 95 02/15/20 00:13 104 H 24 H 93 L 02/15/20 00:00 97.5 F L 89 20 135/72 91 L Weight Admit Weight 190 lb 4.8 oz Weight 190 lb 4.8 oz Most Recent Monitor Data Heart Rate from ECG 103 NIBP 134/101 NIBP BP-Mean 112 Respiration from ECG 45 SpO2 94 I&O: 02/14/20 02/15/20 02/16/20 06:59 06:59 06:59 Intake Total 2645 300 Output Total 1476 100 Balance 1169 200 Result Diagrams: 02/15/20 03:25 02/15/20 03:25 Additional Labs: Accuchecks 02/15/20 02/14/20 02/14/20 04:36 21:05 16:25 POC Glucose 309 H 285 H 288 H 02/14/20 11:01 POC Glucose 366 H Hospitalist ROS - Medication Medications: Active Medications Generic Name Dose Route Start Last Admin Trade Name Freq PRN Reason Stop Dose Admin Albuterol Sulfate 2.5 mg 02/11/20 16:45 02/13/20 04:29 Ventolin NEB 2.5 mg Q4H PRN Administration Wheezing Albuterol/Ipratropium 3 ml 02/13/20 01:00 02/15/20 08:47 Duoneb NEB 3 ml [id number] SANDOR Administration Amlodipine Besylate 5 mg 02/12/20 09:00 02/14/20 10:01 Norvasc PO 5 mg DAILY SANDOR Administration Aspirin 81 mg 02/12/20 09:00 02/14/20 10:06 Ecotrin PO 81 mg DAILY SANDOR Administration Atorvastatin Calcium 80 mg 02/11/20 21:00 02/14/20 20:56 Lipitor PO 80 mg HS SANDOR Administration Ezetimibe 10 mg 02/12/20 09:00 02/14/20 10:00 Zetia PO 10 mg DAILY SANDOR Administration Cefepime HCl 2 gm/ Sodium 100 mls @ 200 mls/hr 02/11/20 23:00 02/14/20 22:22 Chloride IVPB 100 mls 1100,2300 SANDOR Administration Fat Emulsion Intravenous 250 2,122.7021 mls @ 88.863 mls/hr 02/14/20 22:00 22:15 ml/ Sodium Acetate 40 meq/ IV 2,122.7021 mls Sodium Chloride 30 meq/ 2200 SANDOR Administration Potassium Phosphate 30 mmol/ Calcium Gluconate 10 meq/ Magnesium Sulfate 10 meq/ Multivitamins 10 ml/ Chromium/ Copper/Manganese/Zinc 1 ml/ Dextrose/Water/ Sterile Water/ Amino Acids Vancomycin HCl 750 mg/ Sodium 250 mls @ 250 mls/hr 02/15/20 06:00 02/15/20 06 :18 Chloride IVPB 250 mls 0600,1800 SANDOR Administration Insulin Human Lispro 0 units 02/14/20 16:31 02/15/20 05:00 Humalog SC 8 unit .MODERATE SLIDING SC PRN Administration Moderate Correctional Scale Lisinopril 10 mg 02/12/20 09:00 02/14/20 10:06 Zestril PO 10 mg DAILY SANDOR Administration Metoprolol Tartrate 25 mg 02/11/20 21:00 02/14/20 20:57 Lopressor PO 25 mg BID SANDOR Administration Pantoprazole Sodium 40 mg 02/11/20 21:00 02/14/20 20:57 Protonix PO 40 mg BID SANDOR Administration - Exam Eye: PERRL, anicteric sclera Heart: RRR, no murmur, no gallops, no rubs Respiratory: rales (decreased breath sounds at both bases) Gastrointestinal: distended (mild tenderness, no rebound or guarding) Extremities: no cyanosis, 1+ LE edema Hosp A/P (1) Acute respiratory failure with hypoxia Code(s): J96.01 - ACUTE RESPIRATORY FAILURE WITH HYPOXIA Status: Acute (2) Esophageal cancer Status: Chronic (3) CAD (coronary artery disease) Code(s): I25.10 - ATHSCL HEART DISEASE OF [place] CORONARY ARTERY W/O ANG PCTRS Status: Chronic (4) Hypertension Code(s): I10 - ESSENTIAL (PRIMARY) HYPERTENSION Status: Acute (5) Atrial fibrillation Code(s): I48.91 - UNSPECIFIED ATRIAL FIBRILLATION Status: Acute - Plan * Worsening respiratory failure- he was found to have a PE, as well as developing infiltrate in the right base * He has been started on Full dose anticoagulation, and Vancomycin has been added to his antibiotic coverage * Pleural effusion- which is exudative, and likely a malignant effusion - by X- ray this has not re-accumulated - will defer management to Pulmonaology * Esophageal Cancer- as per Oncology * HTN- blood pressure is stable * AFIB- his heart rate is variable, but regular- will monitor- patient is not on anticoagulation * SM- blood glucose is elevated- will increase the dose of Lantus, and continue SSI * CAD- stable * His condition is guarded
[2020-02-15 10:23] LABS: Base Excess (BEa) -8.5 mEq/L (-2.0 to +3.0); CO2 Tension 29.8 mmHg (35.0-45.0); Calcium, Ionized (arterial) 1.37 mmol/L (1.12-1.30); Carboxyhemoglobin (COHb) 0.3 gm% (0.0-3.0); O2 Tension (PaO2), arterial 65.7 mmHg (> 60.0); Potassium - ABG Lab 4.74 mmol/L (3.70-5.30); pH, Arterial 7.35 (7.35-7.45)
[2020-02-15 10:24] LABS: Puncture Site RRA
[2020-02-15] MEDS: Aspirin 81 mg Enteric Coated Tablet PO SCH (10:44)
[2020-02-15] MEDS: Lisinopril 10 MG TAB PO SCH (10:44)
[2020-02-15] MEDS: Ezetimibe 10 MG TAB PO SCH (10:44)
[2020-02-15] MEDS: Metoprolol Tartrate 25 MG TAB PO SCH ×2 (10:44→21:18)
[2020-02-15] MEDS: Amlodipine 5 MG TAB PO SCH (10:44)
[2020-02-15 10:45] VITALS: BP 134/64
[2020-02-15] MEDS: Cefepime 2 GM in Sodium Chloride 0.9% 100 ML IVPB SCH (11:58)
--- NOTE | 2020-02-15 12:13 | PRG ---
DATE OF SERVICE: 02/15/2020 SUBJECTIVE: Shukri Maddox currently had a decline in respiratory status last night. The hospitalist ordered a CT pulmonary angiogram. It shows an alveolar infiltrate in his left upper lobe. I made rounds this morning and noticed that he was in the intermediate care unit on BiPAP. I recommended transfer to the Critical Care Unit. OBJECTIVE: VITAL SIGNS: Heart rates is in the 90s, blood pressure 134/64, respiratory rates in the 30s. GENERAL: He is intermittently cooperative. LUNGS: Remarkable for decreased breath sounds at both lung bases. HEART: Regular rhythm. ABDOMEN: Soft. EXTREMITIES: Without asymmetry. LABORATORY DATA: White count 32, hemoglobin 10, platelets 504. Electrolytes are unremarkable. BUN is 84, creatinine 1.23. IMPRESSION AND PLAN: Metastatic esophageal cancer, status post removal of 2 L of bloody pleural fluid. CT shows an effusion on the right, but not as big as it was when I tapped it before. He will likely end up needing a PleurX catheter at some point in time. Currently, he just needs antimicrobial therapy. The CT angiogram was interpreted as having a small defect. This certainly could be a false positive. I would recommend Doppler in his legs. The small defect is certainly not accounting for his shortness of breath. If he has negative Dopplers, I would stop full-dose Lovenox as he will likely have more malignant bleeding into his chest. Given his advanced age treat him once a day for Dopplers. He will be reassessed during the lunch hour to see if he needs intubation. Job ID: [id number]
--- NOTE | 2020-02-15 12:54 | PDOC.MOPN ---
Interval History: he is on BiPAP, a little combative but he is alert and recognizes me. He says he is SOB but that he does nothave pain, + increased girth in abd - Vital Signs Vital Signs: Vital Signs (12 hours) Temp Pulse Resp BP Pulse Ox 02/15/20 11:22 98 31 H 96 02/15/20 10:44 99 134/64 02/15/20 08:48 99 32 H 92 L 02/15/20 08:47 100 26 H 93 L 02/15/20 07:39 94 L 02/15/20 07:19 98.0 F 02/15/20 04:39 97.5 F L 02/15/20 03:34 93 L 02/15/20 03:17 95 27 H 95 Weight Admit Weight 190 lb 4.8 oz Weight 190 lb 4.8 oz Most Recent Monitor Data Heart Rate from ECG 85 NIBP 115/51 NIBP BP-Mean 72 Respiration from ECG 27 SpO2 94 - Physical Exam General: Alert, Mild distress Lungs: Other (decreased BS in bases wilfrid) Cardiovascular: Regular rate Abdomen: Normal bowel sounds, Other (+ distension) Skin: No rashes Neurological: Normal speech - Labs Result Diagrams: 02/15/20 03:25 02/15/20 03:25 Lab results: Laboratory Results - last 24 hr 02/15/20 10:20: Specimen Type ARTERIAL, Puncture Site RRA, Bicarbonate Actual 16.0 L, ABG pH 7.35, ABG pCO2 29.8 L, ABG pO2 65.7 H, ABG O2 Sat (Measured) 89.8 L, ABG O2 Content 12.6 L, ABG Base Excess -8.5 L, ABG Hematocrit 29.0 L, ABG Hemoglobin 10.0 L, ABG Oxyhemoglobin 89.4 L, ABG Carboxyhemoglobin 0.3, ABG Methemoglobin 0.20, ABG Deoxyhemoglobin 10.1 H, Rigoberto Test POSITIVE, A-a O2 Gradient 324.850 H, Ionized Calcium 1.37 H, Mode of Support BIPAP 14/8, Inspired O2 60, Sodium 138, Potassium 4.74, Chloride 106 02/15/20 04:36: POC Glucose 309 H 02/15/20 03:25: Phosphorus 3.7, Magnesium 2.9 H 02/15/20 03:25: WBC 32.0 H, RBC 3.90 L, Hgb 10.0 L, Hct 32.9 L, MCV 84.2, MCH 25.7 L, MCHC 30.5 L, RDW 18.3 H, Plt Count 504 H, MPV 8.6, Neutrophils % (Manual ) 74, Band Neuts % (Manual) 4 L, Lymphocytes % (Manual) 14 L, Monocytes % ( Manual) 8 02/15/20 03:25: Sodium 138, Potassium 4.6, Chloride 106, Carbon Dioxide 22 L, Anion Gap 15, BUN 84 H, Creatinine 1.23, Estimated GFR (MDRD) 57, Glucose 299 H , Calcium 10.2 02/14/20 21:05: POC Glucose 285 H 02/14/20 16:25: POC Glucose 288 H 02/13/20 11:20: Fluid Diff Path Review A/P - Problem (1) Esophageal cancer, stage IV Current Visit: Yes Code(s): C15.9 - MALIGNANT NEOPLASM OF ESOPHAGUS, UNSPECIFIED Status: Acute (2) Ascites Current Visit: Yes Code(s): R18.8 - OTHER ASCITES Status: Acute - Plan Plan: 1. cont respiratory support, he remains a full code 2. consider paracentesis, will discuss with pulmonary 3. discuss with Dr. Shea, obviously hold off on XRT 4. abx 5. he has incurable disease but still is on treatment, he may have other treatment options if he survives this respiratory event 6. pleureX catheter will likely be necessary
--- NOTE | 2020-02-15 13:47 | ULT ---
EXAM: Bilateral lower extremity venous Doppler US HISTORY: Pulmonary embolism FINDINGS: Grayscale, color-flow, Doppler evaluation, spectral analysis of the bilateral lower extremities venou s structures is performed with 2-D imaging. The bilateral common femoral, superficial femoral, popliteal, posterior tibial, proximal greater saphenous and profunda femoral veins are imaged. There is normal luminal compressibility, flow, and augmentation in the visualized deep venous structu res of the bilateral lower extremities. IMPRESSION: No evidence of a deep vein thrombosis in either lower extremity.
--- NOTE | 2020-02-15 15:46 | PDOC.PALPN ---
Palliative Progress Note - Subjective Consulted for Advanced directive assist as well as prognosis disease assist. Transitioned to CCU secondary to increase in shortness of breath and need for Bipap. Awake, labored respirations. Difficulty in ROS secondary to respiratory workload. - Objective Vital Signs: Vital Signs - Most Recent Temp Pulse Resp BP Pulse Ox 98.0 F 100 33 H 134/64 92 L 02/15/20 07:19 02/15/20 14:30 02/15/20 14:30 02/15/20 10:44 02/15/20 14:30 - Physical Exam Constitutional: ill appearing, mild distress HEENT: moist MMs Respiratory: accessory muscle use, diminished lung sound, labored respirations Gastrointestinal: positive bowel sounds Genitourinary: incontinent Neurology: moves all 4 limbs, no focal deficits Skin: cap refill <2 seconds Psychiatric: A&O x 3, normal mood - Assessment (1) Acute respiratory failure with hypoxia Code(s): J96.01 - ACUTE RESPIRATORY FAILURE WITH HYPOXIA Current Visit: Yes Status: Acute (2) Ascites Code(s): R18.8 - OTHER ASCITES Current Visit: Yes Status: Acute (3) Esophageal cancer, stage IV Code(s): C15.9 - MALIGNANT NEOPLASM OF ESOPHAGUS, UNSPECIFIED Current Visit: Yes Status: Acute (4) Hypertension Code(s): I10 - ESSENTIAL (PRIMARY) HYPERTENSION Current Visit: Yes Status: Acute (5) Stomach cancer Current Visit: No Status: Acute (6) PAD (peripheral artery disease) Code(s): I73.9 - PERIPHERAL VASCULAR DISEASE, UNSPECIFIED Current Visit: No Status: Chronic - Plan Plan: Labored respirations, introduced Palliative Care and directives to Mr Maddox, he has elected his son Iglesia to be MPOCarlos Alberto, I also spoke with Vaibhav. Both sons plan on attending a meeting tomorrow 02/15/ with patient and Palliative Care to discuss disease progression and address directive to physicians, allowing the patient to express his wishes to his son. Will communicate with providers involved in care when patient sons are here. Emotional support and therapeutic listening offered to patient and his son. Please also refer to Cata Coffey notes in note section. [25] minutes spent on this encounter with >50% of the time in counseling and coordination of care. - ROS Constitutional: alert, weakness ENT: other (denies throat irritation) Respiratory: shortness of breath, shortness of breath with extertion Cardiology: edema Neurological: other (denies numbness) Psychological: other (denies mod changes)
--- NOTE | 2020-02-15 17:50 | EKG ---
Test Reason : STAT Blood Pressure : / mmHG Vent. Rate : 092 BPM Atrial Rate : 144 BPM P-R Int : 000 ms QRS Dur : 076 ms QT Int : 334 ms P-R-T Axes : 000 062 030 degrees QTc Int : 413 ms Atrial fibrillation Low voltage QRS Abnormal ECG When compared with ECG of 11-FEB-2020 10:17, (Unconfirmed) Atrial fibrillation has replaced Junctional rhythm Confirmed by FILOMENA TEE, SMary ([id number]) on 02/15/2020 5:49:44 PM Referred By: CLARI GOLDSMITH Confirmed By:DR. Yennifer BUTT MD
[2020-02-15] MEDS: Atorvastatin Calcium 40 MG TAB PO SCH (21:22)
[2020-02-15] MEDS: Fat Emulsion 250 ML, Sodium Acetate 2 mEq/ml 40 MEQ, Sodium Chloride 30 MEQ, Potassium ... IV SCH (22:16)
[2020-02-16] MEDS: Cefepime 2 GM in Sodium Chloride 0.9% 100 ML IVPB SCH ×3 (00:09→22:06)
[2020-02-16] MEDS ORDERED: Norepinephrine 8 MG/0.9% NS 250 ML IVPB SCH (00:45)
[2020-02-16 05:11] LABS: Anion Gap 12 mmol/L (10-20); BUN (Urea Nitrogen) 100 mg/dL (8.4-25.7); Calc. Creatinine Clearance 58 mL/min (70-130); Calcium 9.9 mg/dL (7.8-10.44); Carbon Dioxide 23 mmol/L (23-31); Chloride 111 mmol/L (98-107); Estimated GFR-MDRD 57; Glucose 228 mg/dL (83-110); Potassium 4.9 mmol/L (3.5-5.1); Sodium 141 mmol/L (136-145)
[2020-02-16] MEDS: Vancomycin HCl 750 MG in Sodium Chloride 0.9% 250 ML 250 ML IVPB SCH (05:24)
[2020-02-16] MEDS: HumaLOG 300 UNITS/3 ML VIAL SC PRN ×3 (05:25→18:40)
[2020-02-16 06:00] LABS: Anisocytosis SLIGHT = 6-15 cells (100X) (0-5/hpf); Band 7 % (5-11); Elliptocytes SLIGHT = 2-5 cells (100X) (0-1/hpf); Hemoglobin 8.5 g/dL (14.0-18.0); Lymphocytes 11 % (21-51); MDiff Complete? YES; Mean Corpuscular HGB CONC 30.4 g/dL (32.0-36.0); Mean Corpuscular Hemoglobin 25.7 pg (27.0-31.0); Mean Corpuscular Volume 84.5 fL (78.0-98.0); Mean Platelet Volume 8.6 fL (7.4-10.4); Monocytes 4 % (0-10); Neutrophil 78 % (42-75); Platelet Count 423 thou/uL (130-400); RBC Distribution Width 18.1 % (11.5-14.5); Red Blood Cell (RBC) Count 3.31 mill/uL (4.70-6.10); White Blood Cell (WBC) Count 34.1 thou/uL (4.8-10.8)
[2020-02-16] MEDS: Enoxaparin Sodium 100 MG/ML SYRINGE SC SCH (09:32)
[2020-02-16] MEDS: Aspirin 81 mg Enteric Coated Tablet PO SCH (09:32)
[2020-02-16] MEDS: Metoprolol Tartrate 25 MG TAB PO SCH (09:33)
[2020-02-16] MEDS: Insulin Glargine 25 UNITS in Pre-Filled Syringe 1 EACH SC SCH (09:39)
[2020-02-16] MEDS: Amlodipine 5 MG TAB PO SCH (09:42)
[2020-02-16] MEDS: Ezetimibe 10 MG TAB PO SCH (09:43)
[2020-02-16] MEDS: Lisinopril 10 MG TAB PO SCH (09:44)
--- NOTE | 2020-02-16 10:25 | PDOC.HOSPP ---
- Subjective Encounter Date: 02/16/20 Encounter Time: 10:24 Subjective: Mr. Maddox was seen today in follow-up of respiratory failure due to malignant pleural effusion. He is currently on BIPAP, he says he is still short of breath. He denies chest pain. Two of his sons are at the bedside. - Objective Vital Signs & Weight: Vital Signs (12 hours) Temp Pulse Resp BP Pulse Ox 02/16/20 09:44 134/64 02/16/20 08:00 98.3 F 25 H 90 L 02/16/20 06:50 72 27 H 95 02/16/20 06:49 74 27 H 96 02/16/20 04:00 97.7 F 02/16/20 02:20 91 35 H 95 02/16/20 00:00 97.9 F 02/15/20 23:43 79 33 H 95 Weight Admit Weight 190 lb 4.8 oz Weight 196 lb 10.437 oz Most Recent Monitor Data Heart Rate from ECG 82 NIBP 128/64 NIBP BP-Mean 85 Respiration from ECG 36 SpO2 92 I&O: 02/15/20 02/16/20 02/17/20 06:59 06:59 06:59 Intake Total 300 4542.8 118 Output Total 100 300 1 Balance 200 4242.8 117 Result Diagrams: 02/16/20 04:30 02/16/20 04:30 Additional Labs: Accuchecks 02/15/20 02/15/20 02/15/20 21:21 16:59 11:02 POC Glucose 227 H 324 H 279 H Hospitalist ROS - Medication Medications: Active Medications Generic Name Dose Route Start Last Admin Trade Name Freq PRN Reason Stop Dose Admin Albuterol Sulfate 2.5 mg 02/11/20 16:45 02/13/20 04:29 Ventolin NEB 2.5 mg Q4H PRN Administration Wheezing Albuterol/Ipratropium 3 ml 02/13/20 01:00 02/16/20 06:49 Duoneb NEB 3 ml [id number] SANDOR Administration Amlodipine Besylate 5 mg 02/12/20 09:00 02/16/20 09:42 Norvasc PO Not Given DAILY SANDOR Aspirin 81 mg 02/12/20 09:00 02/16/20 09:32 Ecotrin PO Not Given DAILY SANDOR Atorvastatin Calcium 80 mg 02/11/20 21:00 02/15/20 21:22 Lipitor PO Not Given HS SANDOR Ezetimibe 10 mg 02/12/20 09:00 02/16/20 09:43 Zetia PO Not Given DAILY SANDOR Enoxaparin Sodium 90 mg 02/16/20 09:00 02/16/20 09:32 Lovenox SC 90 mg 0900 SANDOR Administration Cefepime HCl 2 gm/ Sodium 100 mls @ 200 mls/hr 02/11/20 23:00 02/16/20 00:09 Chloride IVPB 100 mls 1100,2300 SANDOR Administration Fat Emulsion Intravenous 250 2,122.7021 mls @ 88.863 mls/hr 02/14/20 22:00 22:16 ml/ Sodium Acetate 40 meq/ IV 2,122.7021 mls Sodium Chloride 30 meq/ 2200 SANDOR Administration Potassium Phosphate 30 mmol/ Calcium Gluconate 10 meq/ Magnesium Sulfate 10 meq/ Multivitamins 10 ml/ Chromium/ Copper/Manganese/Zinc 1 ml/ Dextrose/Water/ Sterile Water/ Amino Acids Vancomycin HCl 750 mg/ Sodium 250 mls @ 250 mls/hr 02/15/20 06:00 02/16/20 05 :24 Chloride IVPB 250 mls 0600,1800 SANDOR Administration Dexmedetomidine HCl 400 mcg/ 100 mls @ 0 mls/hr 02/15/20 16:15 02/16/20 09:35 Sodium Chloride IVPB 100 mls INF SANDOR Administration Protocol Titrate Norepinephrine Bitartrate 250 mls @ 0 mls/hr 02/16/20 00:45 02/16/20 01:05 Levophed IVPB 250 mls INF SANDOR Administration Protocol Titrate Insulin Glargine 25 units/ 0.25 mls @ 0 mls/hr 02/16/20 09:00 02/16/20 09:39 Miscellaneous Medication SC 0.25 mls QAM SANDOR Administration Insulin Human Lispro 0 units 02/14/20 16:31 02/16/20 05:25 Humalog SC 4 unit .MODERATE SLIDING SC PRN Administration Moderate Correctional Scale Insulin Human Lispro 0 units 02/14/20 16:31 02/15/20 21:17 Humalog SC 2 unit .BEDTIME SLIDING SC PRN Administration Bedtime Correctional Scale Lisinopril 10 mg 02/12/20 09:00 02/16/20 09:44 Zestril PO Not Given DAILY [facility] Metoprolol Tartrate 25 mg 02/11/20 21:00 02/16/20 09:33 Lopressor PO Not Given BID SANDOR Pantoprazole Sodium 40 mg 02/11/20 21:00 02/16/20 09:33 Protonix PO Not Given BID [facility] Sodium Chloride 10 ml 02/15/20 09:00 02/16/20 09:32 Flush - Normal Saline IVF 10 ml Q12HR SANDOR Administration - Exam Eye: PERRL Heart: RRR, no murmur, no gallops, no rubs, normal peripheral pulses Respiratory: no wheezes, no ronchi, rales (+ coarse breath sounds) Gastrointestinal: soft, non-tender, non-distended, normal bowel sounds Extremities: no cyanosis, 1+ LE edema Hosp A/P (1) Acute respiratory failure with hypoxia Code(s): J96.01 - ACUTE RESPIRATORY FAILURE WITH HYPOXIA Status: Acute (2) Esophageal cancer Status: Chronic (3) CAD (coronary artery disease) Code(s): I25.10 - ATHSCL HEART DISEASE OF [place] CORONARY ARTERY W/O ANG PCTRS Status: Chronic (4) Hypertension Code(s): I10 - ESSENTIAL (PRIMARY) HYPERTENSION Status: Acute (5) Atrial fibrillation Code(s): I48.91 - UNSPECIFIED ATRIAL FIBRILLATION Status: Acute (6) Leukocytosis Code(s): D72.829 - ELEVATED WHITE BLOOD CELL COUNT, UNSPECIFIED Status: Acute - Plan * Worsening respiratory failure- he notes dyspnea while on BIPAP. He has indicated that he does not wish to be placed on a ventilator should his respiratory status decline * He does not wish CPR either * Will change his code status to DNR * Esophageal Cancer- as per Oncology- input noted * HTN- blood pressure has been on the lower side. He is essentially unable to take anything by mouth- will hold his home medications, and treat with prn medication for now * AFIB- his heart rate is variable, but regular- will monitor- patient is not on anticoagulation * DM- blood glucose is elevated- continue to titrate insulin * CAD- stable * Leukocytosis- ? etiology- will consult ID
[2020-02-16] MEDS ORDERED: Labetalol HCl 100 MG/20 ML VIAL SLOW IVP PRN (10:34)
[2020-02-16] MEDS ORDERED: hydrALAZINE 20 MG/ML VIAL SLOW IVP PRN (10:34)
--- NOTE | 2020-02-16 14:54 | PDOC.FMACP ---
Advance Care Planning - Problem (1) Acute respiratory failure with hypoxia Status: Acute Code(s): J96.01 - ACUTE RESPIRATORY FAILURE WITH HYPOXIA (2) Ascites Status: Acute Code(s): R18.8 - OTHER ASCITES (3) Esophageal cancer, stage IV Status: Acute Code(s): C15.9 - MALIGNANT NEOPLASM OF ESOPHAGUS, UNSPECIFIED (4) Hypertension Status: Acute Code(s): I10 - ESSENTIAL (PRIMARY) HYPERTENSION (5) Stomach cancer Status: Acute (6) PAD (peripheral artery disease) Status: Chronic Code(s): I73.9 - PERIPHERAL VASCULAR DISEASE, UNSPECIFIED - Note Participants: patient, family, palliative care Summary: Palliative Care continued the conversation for Advanced Care Planning was discussed, oppertunity to decline was allowed. The diagnosis, prognosis and goals of care were discussed. Appropriate forms and documentation to accomplish the goals of care were discussed. All questions were answered. Two of patients three sons are at bedside, Vaibhav and Iglesia. Mr Maddox has completed the MPOA, elected to transition to DNAR and Directive to Physician was completed. Mr Maddox stated he is not certain how long he wishes to remain on BiPap, continued chemo depends on how he is able to rebound from this event. Please also refer to Cata Coffey RNsales professional notes in note section. Time Spent (mins): 30
--- NOTE | 2020-02-16 15:11 | PDOC.MOPN ---
Interval History: remains on bipap with rates in 30's - Vital Signs Vital Signs: Vital Signs (12 hours) Temp Pulse Resp BP Pulse Ox 02/16/20 13:16 78 29 H 94 L 02/16/20 12:00 98.6 F 02/16/20 09:44 134/64 02/16/20 08:00 98.3 F 25 H 90 L 02/16/20 06:50 72 27 H 95 02/16/20 06:49 74 27 H 96 02/16/20 04:00 97.7 F Weight Admit Weight 190 lb 4.8 oz Weight 196 lb 10.437 oz Most Recent Monitor Data Heart Rate from ECG 76 NIBP 118/59 NIBP BP-Mean 78 Respiration from ECG 30 SpO2 87 - Physical Exam General: Mild distress Cardiovascular: Regular rate Abdomen: Normal bowel sounds Neurological: Other - Labs Result Diagrams: 02/16/20 04:30 02/16/20 04:30 Lab results: Laboratory Results - last 24 hr 02/16/20 12:38: POC Glucose 217 H 02/16/20 04:30: WBC 34.1 H, RBC 3.31 L, Hgb 8.5 L, Hct 27.9 L, MCV 84.5, MCH 25.7 L, MCHC 30.4 L, RDW 18.1 H, Plt Count 423 H, MPV 8.6, Neutrophils % (Manual ) 78 H, Band Neuts % (Manual) 7, Lymphocytes % (Manual) 11 L, Monocytes % ( Manual) 4, Smudge Cells SLIGHT, Anisocytosis SLIGHT = 6-15 cells, Elliptocytes SLIGHT = 2-5 cells 02/16/20 04:30: Sodium 141, Potassium 4.9, Chloride 111 H, Carbon Dioxide 23, Anion Gap 12, BUN 100 H, Creatinine 1.23, Estimated GFR (MDRD) 57, Glucose 228 H , Calcium 9.9 02/15/20 21:21: POC Glucose 227 H 02/15/20 16:59: POC Glucose 324 H 02/15/20 11:02: POC Glucose 279 H Status: lab reviewed by me A/P - Problem (1) Acute respiratory failure with hypoxia Current Visit: Yes Code(s): J96.01 - ACUTE RESPIRATORY FAILURE WITH HYPOXIA Status: Acute (2) Esophageal cancer, stage IV Current Visit: Yes Code(s): C15.9 - MALIGNANT NEOPLASM OF ESOPHAGUS, UNSPECIFIED Status: Acute - Plan Plan: 1. cont respiratory support, he remains a full code 2. paracentesis, path pending 3. hold XRT 4. abx 5. he has incurable disease but still is on treatment, he may have other treatment options if he survives this respiratory event 6. pleureX catheter will likely be necessary
[2020-02-16] MEDS ORDERED: Fluconazole In NaCl,Iso-Osm 400 MG in Premix Bag 1 BAG IVPB SCH (16:00)
--- NOTE | 2020-02-16 16:26 | PRG ---
DATE OF SERVICE: 02/16/2020 SUBJECTIVE: I met with Mr. Maddox's family (2 sons today). Neither one of them wants and do suffer needlessly for prolonged period of time. He is showing signs of muscle fatigue even with BiPAP. He did awaken and tell them this morning that he did not want to be intubated. We discussed the fact that he has a stage IV malignancy that would likely not be amenable to any type of further treatment given his extreme decline with a left upper lobe pneumonia. We will try to get family together to come up here to sit with him and then withdraw support. It is unclear when they will be able to do this. They did agree to a do not resuscitate status. His physical exam is otherwise unchanged. IMPRESSION: 1. Metastatic esophageal cancer. 2. Pneumonia, hospital acquired. 3. Deconditioning and muscle weakness associated with his critical illness. 4. Pleural effusion on the right, it is bloody, that is recurring clinically. Pleural fluid pathology is still pending. CRITICAL CARE TIME: 30 minutes. Job ID: [id number]
--- NOTE | 2020-02-16 16:59 | CON ---
DATE OF CONSULTATION: 02/16/2020 REASON FOR CONSULTATION: Esophageal cancer and respiratory insufficiency with cough. HISTORY OF PRESENT ILLNESS: An 79-year-old patient recently diagnosed with esophageal cancer in 08/2019, who had initially esophageal stent, which was placed, and after chemo removed. He continues to receive chemotherapy and has had a partial response. He does have a double lumen PICC line and gets some nutritional input through that access. Two to three days before admission, he developed weakness, worsening dyspnea, cough, and some wheezing. No fever. No headaches. No abdominal pain. No diarrhea. No bleeding. On arrival, his O2 saturations were 92%. He is tachypneic at [address] A CT angio was done and it showed no evidence of pulmonary embolism. There was a moderate right and small left pleural effusion, and reticulonodular appearance in the mesentery of the anterior abdomen, which was concerning for carcinomatosis. There was an area of consolidation in the right lower lobe, consistent with volume loss. On 02/12, he was feeling more short of breath and still afebrile, was tachycardic intermittently, O2 saturation 92 to 95, and he did have bilateral wheezing and rhonchi noticed. Abdomen was not tender. He had been started on broad-spectrum antimicrobial coverage for presumption of pulmonary infection. He was seen by Dr. Hoyos, and repeat chest x-ray showed worsening pleural effusion, so a thoracentesis was performed, 2 L of hemorrhagic fluid was evacuated and sent for appropriate studies. Pathology of this fluid is pending at the moment. The analysis showed 4000 wbc's, 117,000 rbc's and the wbc's predominance of neutrophils, the protein was 2.9, pH 7.2, and LDH 1800. Amylase less than 30. He initially improved after thoracentesis, but then deteriorated again and another CT angio was done. There was a small defect, which was not felt to be clinically meaningful and not responsible for the patient's respiratory status decline. He had an alveolar infiltrate in the left upper lobe, so he has been kept in the unit on a BiPAP. He had a duplex ultrasound of lower extremities and there was no evidence of deep vein thrombosis in either leg. Currently, the patient is on BiPAP. He has a DNAR advanced directive. He is on inhalers, cefepime, enoxaparin 90 mg once a day, Zetia, TPN, insulin, lisinopril, Remeron, Levophed, Zofran, and vancomycin. Currently, Mr. Maddox is unable to answer questions. He is having quite labored breathing. He is agitated, trying to fit his BiPAP mask on his face and moving side to side. He has not had diarrhea. He is voiding initially with a condom catheter, now is voiding in the briefs. PAST MEDICAL HISTORY: Includes: 1. Esophageal cancer, likely stage IV. 2. Coronary artery disease. 3. Peripheral vascular disease. 4. Hypertension. 5. Atrial fibrillation. 6. Chemotherapy. 7. TPN. SURGICAL HISTORY: 1. Peripheral artery stents x5. 2. Aortic aneurysm repair. 3. Stenting of the esophagus, removal of the stent. SOCIAL HISTORY: Former smoker. Drinks occasionally. FAMILY HISTORY: Dementia and cancer. ALLERGIES: NONE. MEDICATIONS: Had been described above. PHYSICAL EXAMINATION: VITAL SIGNS: T-max 98.6, blood pressure 118/59, pulse 76, respirations 30, and O2 saturations are 87 to 95. His I's and O's have been positive anywhere from 200 to 1100 in the past 4 days and today there have been positive 4200. SKIN: A PICC line in the right upper extremity, double-lumen. No Villalobos catheter. No lymphadenopathy. HEENT: Ocular movements are conjugate. Oral cavity is dry. LUNGS: Symmetric air entry. Faint wheezing noted. HEART: S1 and S2. Regular rate. Tachycardic. ABDOMEN: Distended. No ascites noted on physical exam, but it is present on imaging. EXTREMITIES: No edema. Pulses 1+ in dorsalis pedis. He seems to be able to move all extremities. NEUROLOGIC: He is agitated, uncomfortable with labored breathing. LABORATORY DATA: White cell count started at 19 and is up to 34,000, hemoglobin starts at 9.8 and now is 8.5, MCV stable at 84 and platelets started at 524 and now 423, the patient had 80% neutrophils on arrival and now is down to 78%, the bands are not increased. D-dimer 8.43. A pH 7.35, pCO2 of 29, PO2 of 65. Creatinine starts at 0.89 and now is 1.23,. Total bilirubin is 0.3, AST is 45, ALT 29, alkaline phosphatase 148, CK 30, and albumin 2.4. BNP 222. Two sets of blood cultures, no growth. Pleural fluid, no growth thus far. ASSESSMENT: 1. Chronic smoking in the past. 2. Peripheral vascular disease. 3. Coronary artery disease with EF 55% to 60%, some diastolic dysfunction noted. 4. 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 5. Respiratory distress, probably multifactorial. 6. Leukocytosis. DISCUSSION: The patient has persisting respiratory distress and hypoxemia and this seems to be multifactorial with the malignancy and possible thromboembolism, some element of diastolic dysfunction and possible superimposed pneumonia. There is no evidence of esophageal communication with the pleural space. It is more likely that the leukocytosis is due to the hyperadrenergic state associated with demargination rather than an uncontrolled infectious process at this point. There is no evidence to suggest bacteremia or fungemia at this point in time. The sensitivity for detection of Chyna fungemia is not optimal and would be reasonable to add antifungal therapy since he has been on TPN via PICC line for quite a while, so I am going to go ahead and add Diflucan, but overall evidently prognosis is poor. Job ID: [id number]
[2020-02-16 17:13] LABS: Vancomycin, Trough 24.3 ug/mL
[2020-02-16] MEDS ORDERED: Insulin Glargine 25 UNITS in Pre-Filled Syringe 1 EACH SC SCH (21:00)
[2020-02-16] MEDS: Lorazepam 2 MG/ML VIAL SLOW IVP PRN (21:19)
[2020-02-16] MEDS: Fat Emulsion 250 ML, Sodium Acetate 2 mEq/ml 40 MEQ, Sodium Chloride 30 MEQ, Potassium ... IV SCH (21:28)
[2020-02-17] MEDS: Morphine 2 MG/ML VIAL SLOW IVP PRN ×3 (00:09→09:55)
[2020-02-17] MEDS: Atorvastatin Calcium 40 MG TAB PO SCH (02:20)
[2020-02-17] MEDS: Metoprolol Tartrate 25 MG TAB PO SCH ×2 (02:21→08:19)
[2020-02-17] MEDS: Lorazepam 2 MG/ML VIAL SLOW IVP PRN ×2 (03:12→09:19)
[2020-02-17 05:25] LABS: Anion Gap 13 mmol/L (10-20); BUN (Urea Nitrogen) 106 mg/dL (8.4-25.7); Calc. Creatinine Clearance 0 mL/min (70-130); Calcium 10.4 mg/dL (7.8-10.44); Carbon Dioxide 21 mmol/L (23-31); Chloride 113 mmol/L (98-107); Estimated GFR-MDRD 54; Glucose 176 mg/dL (83-110); Potassium 5.1 mmol/L (3.5-5.1); Sodium 142 mmol/L (136-145)
[2020-02-17 05:29] LABS: Band 1 % (5-11); Eosinophils 1 % (0-10); Lymphocytes 13 % (21-51); MDiff Complete? YES; Mean Corpuscular HGB CONC 29.8 g/dL (32.0-36.0); Mean Corpuscular Hemoglobin 25.5 pg (27.0-31.0); Mean Corpuscular Volume 85.7 fL (78.0-98.0); Monocytes 8 % (0-10); Neutrophil 77 % (42-75); Platelet Count 457 thou/uL (130-400); RBC Distribution Width 18.4 % (11.5-14.5); Red Blood Cell (RBC) Count 3.54 mill/uL (4.70-6.10); White Blood Cell (WBC) Count 38.2 thou/uL (4.8-10.8)
[2020-02-17] MEDS ORDERED: Vancomycin 1.5 GRAM/300 ML BAG 1.5 GM in Premix Bag 1 BAG IVPB SCH (07:00)
[2020-02-17] MEDS: Vancomycin HCl 750 MG in Sodium Chloride 0.9% 250 ML 250 ML IVPB SCH (07:27)
[2020-02-17] MEDS: Amlodipine 5 MG TAB PO SCH (08:18)
[2020-02-17] MEDS: Aspirin 81 mg Enteric Coated Tablet PO SCH (08:18)
[2020-02-17] MEDS: Enoxaparin Sodium 100 MG/ML SYRINGE SC SCH (08:18)
[2020-02-17] MEDS: Lisinopril 10 MG TAB PO SCH (08:19)
[2020-02-17] MEDS: Ezetimibe 10 MG TAB PO SCH (08:19)
[2020-02-17 08:37] VITALS: TEMP 96.2
[2020-02-17] MEDS: Insulin Glargine 25 UNITS in Pre-Filled Syringe 1 EACH SC SCH (09:19)
[2020-02-17] MEDS: Cefepime 2 GM in Sodium Chloride 0.9% 100 ML IVPB SCH (11:06)
--- NOTE | 2020-02-17 11:10 | PDOC.MOPN ---
Interval History: remains on bipap with low sats. - Vital Signs Vital Signs: Vital Signs (12 hours) Temp Pulse Resp BP Pulse Ox 02/17/20 08:19 134/64 02/17/20 08:18 88 02/17/20 08:01 88 35 H 89 L 02/17/20 08:00 96.2 F L 02/17/20 07:59 86 38 H 85 L 02/17/20 07:31 89 L 02/17/20 04:00 96.4 F L 02/17/20 02:12 83 30 H 92 L 02/17/20 00:00 97.3 F L 02/16/20 23:54 90 40 H 95 Weight Admit Weight 190 lb 4.8 oz Weight 3.065 oz Most Recent Monitor Data Heart Rate from ECG 73 NIBP 108/49 NIBP BP-Mean 68 Respiration from ECG 33 SpO2 88 - Physical Exam General: Mild distress Cardiovascular: Regular rate Neurological: Other - Labs Result Diagrams: 02/17/20 04:45 02/17/20 04:45 Lab results: Laboratory Results - last 24 hr 02/17/20 04:55: POC Glucose 175 H 02/17/20 04:45: WBC 38.2 H, RBC 3.54 L, Hgb 9.0 L, Hct 30.3 L, MCV 85.7, MCH 25.5 L, MCHC 29.8 L, RDW 18.4 H, Plt Count 457 H, MPV 9.0, Neutrophils % (Manual ) 77 H, Band Neuts % (Manual) 1 L, Lymphocytes % (Manual) 13 L, Monocytes % ( Manual) 8, Eosinophils % (Manual) 1 02/17/20 04:45: Sodium 142, Potassium 5.1, Chloride 113 H, Carbon Dioxide 21 L, Anion Gap 13, BUN 106 H, Creatinine 1.29, Estimated GFR (MDRD) 54, Glucose 176 H , Calcium 10.4 02/16/20 21:06: POC Glucose 160 H 02/16/20 18:43: POC Glucose 162 H 02/16/20 16:47: Vancomycin Trough 24.3 02/16/20 16:19: POC Glucose 187 H 02/16/20 12:38: POC Glucose 217 H 02/16/20 04:21: POC Glucose 262 H Status: lab reviewed by me A/P - Problem (1) Acute respiratory failure with hypoxia Current Visit: Yes Code(s): J96.01 - ACUTE RESPIRATORY FAILURE WITH HYPOXIA Status: Acute (2) Esophageal cancer, stage IV Current Visit: Yes Code(s): C15.9 - MALIGNANT NEOPLASM OF ESOPHAGUS, UNSPECIFIED Status: Acute - Plan Plan: Per palliative care, patient and family wish hospice. will assist with transition to hospice if needed.
[2020-02-17] MEDS ORDERED: Lorazepam 2 MG/ML VIAL SLOW IVP PRN (11:12)
--- NOTE | 2020-02-17 11:20 | PDOC.PALPN ---
Palliative Progress Note - Subjective Labored respirations, on Bipap. DNAR. Desires to have family at bedside and withdraw respiratory support. - Objective Vital Signs: Vital Signs - Most Recent Temp Pulse Resp BP Pulse Ox 96.2 F L 88 35 H 134/64 89 L 02/17/20 08:00 02/17/20 08:18 02/17/20 08:01 02/17/20 08:19 02/17/20 08:01 - Physical Exam Constitutional: ill appearing, mild distress HEENT: EOMI, moist MMs, sclera anicteric Respiratory: accessory muscle use, diminished lung sound, labored respirations Cardiovascular: RRR Gastrointestinal: soft, non-tender, positive bowel sounds Musculoskeletal: pulses present Neurology: moves all 4 limbs, no focal deficits Skin: cap refill <2 seconds, no lesions, no rash Psychiatric: A&O x 3 - Assessment (1) Acute respiratory failure with hypoxia Code(s): J96.01 - ACUTE RESPIRATORY FAILURE WITH HYPOXIA Status: Acute (2) Ascites Code(s): R18.8 - OTHER ASCITES Status: Acute (3) Esophageal cancer, stage IV Code(s): C15.9 - MALIGNANT NEOPLASM OF ESOPHAGUS, UNSPECIFIED Status: Acute (4) Hypertension Code(s): I10 - ESSENTIAL (PRIMARY) HYPERTENSION Status: Acute (5) Stomach cancer Status: Acute (6) PAD (peripheral artery disease) Code(s): I73.9 - PERIPHERAL VASCULAR DISEASE, UNSPECIFIED Status: Chronic - Plan Plan: Family and patient have elected to remove Bipap, and seek comfort care. Family to bedside. Reviewed patietn decision to no intubate, and withdraw respiratory support offered through BiPap. Increase Morphine secondary to restlessness and shortness of breath, and Ativan Emotional Support and Therapeutic Listening offered. PC Team Communicated with Dr Olivo, [place], Dr Hoyos [35] minutes spent on this encounter with >50% of the time in counseling and coordination of care. - ROS Constitutional: weakness ENT: dry mouth Respiratory: shortness of breath, shortness of breath with extertion Cardiology: light headedness Gastrointestinal: other
[2020-02-17] MEDS: Morphine 4 MG/ML VIAL SLOW IVP PRN ×2 (11:40→11:55)
--- NOTE | 2020-02-17 12:19 | PDOC.HOSPP ---
- Subjective Encounter Date: 02/17/20 Encounter Time: 10:30 Subjective: Mr. Maddox was seen today in follow-up of respiratory failure. He is currently on BIPAP. He appears uncomfortable and a bit dyspneic. - Objective Vital Signs & Weight: Vital Signs (12 hours) Temp Pulse Resp BP Pulse Ox 02/17/20 08:19 134/64 02/17/20 08:18 88 02/17/20 08:01 88 35 H 89 L 02/17/20 08:00 96.2 F L 02/17/20 07:59 86 38 H 85 L 02/17/20 07:31 89 L 02/17/20 04:00 96.4 F L 02/17/20 02:12 83 30 H 92 L Weight Admit Weight 190 lb 4.8 oz Weight 3.065 oz Most Recent Monitor Data Heart Rate from ECG 78 NIBP 101/50 NIBP BP-Mean 67 Respiration from ECG 30 SpO2 87 I&O: 02/16/20 02/17/20 02/18/20 06:59 06:59 06:59 Intake Total 4542.8 3550.4 Output Total 300 541 Balance 4242.8 3009.4 Result Diagrams: 02/17/20 04:45 02/17/20 04:45 Additional Labs: Accuchecks 02/17/20 02/16/20 02/16/20 04:55 21:06 18:43 POC Glucose 175 H 160 H 162 H 02/16/20 02/16/20 02/16/20 16:19 12:38 04:21 POC Glucose 187 H 217 H 262 H Hospitalist ROS - Medication Medications: Active Medications Generic Name Dose Route Start Last Admin Trade Name Freq PRN Reason Stop Dose Admin Albuterol Sulfate 2.5 mg 02/11/20 16:45 02/13/20 04:29 Ventolin NEB 2.5 mg Q4H PRN Administration Wheezing Albuterol/Ipratropium 3 ml 02/13/20 01:00 02/17/20 07:59 Duoneb NEB 3 ml [id number] SANDOR Administration Amlodipine Besylate 5 mg 02/12/20 09:00 02/17/20 08:18 Norvasc PO Not Given DAILY SANDOR Aspirin 81 mg 02/12/20 09:00 07/08/20 08:18 Ecotrin PO Not Given DAILY SANDOR Atorvastatin Calcium 80 mg 02/11/20 21:00 02/17/20 02:20 Lipitor PO Not Given HS SANDOR Ezetimibe 10 mg 02/12/20 09:00 02/17/20 08:19 Zetia PO Not Given DAILY SANDOR Enoxaparin Sodium 90 mg 02/16/20 09:00 02/17/20 08:18 Lovenox SC 90 mg 0900 SANDOR Administration Cefepime HCl 2 gm/ Sodium 100 mls @ 200 mls/hr 02/11/20 23:00 02/17/20 11:06 Chloride IVPB 100 mls 1100,2300 SANDOR Administration Dexmedetomidine HCl 400 mcg/ 100 mls @ 0 mls/hr 02/15/20 16:15 02/17/20 09:55 Sodium Chloride IVPB 100 mls INF SANDOR Administration Protocol Titrate Norepinephrine Bitartrate 250 mls @ 0 mls/hr 02/16/20 00:45 02/16/20 01:05 Levophed IVPB 250 mls INF SANDOR Administration Protocol Titrate Insulin Glargine 25 units/ 0.25 mls @ 0 mls/hr 02/16/20 21:00 02/16/20 21:18 Miscellaneous Medication SC 0.25 mls HS SANDOR Administration Insulin Glargine 25 units/ 0.25 mls @ 0 mls/hr 02/16/20 09:00 02/17/20 09:19 Miscellaneous Medication SC Not Given QAM SANDOR Fluconazole/Sodium Chloride 200 mls @ 100 mls/hr 02/16/20 16:00 02/16/20 16: 56 400 mg/ Device IVPB 200 mls 1600 SANDOR Administration Vancomycin HCl 1.5 gm/ Device 300 mls @ 200 mls/hr 02/17/20 07:00 02/17/20 06 :17 IVPB 300 mls Q24HR SANDOR Administration Insulin Human Lispro 0 units 02/14/20 16:31 02/16/20 18:40 Humalog SC 2 unit .MODERATE SLIDING SC PRN Administration Moderate Correctional Scale Insulin Human Lispro 0 units 02/14/20 16:31 02/15/20 21:17 Humalog SC 2 unit .BEDTIME SLIDING SC PRN Administration Bedtime Correctional Scale Lisinopril 10 mg 02/12/20 09:00 02/17/20 08:19 Zestril PO Not Given DAILY [facility] Metoprolol Tartrate 25 mg 02/11/20 21:00 02/17/20 08:19 Lopressor PO Not Given BID SANDOR Morphine Sulfate 2 mg 02/16/20 10:35 02/17/20 09:55 Morphine Sulfate SLOW IVP 2 mg Q4H PRN Administration SOB or Anxiety Pantoprazole Sodium 40 mg 02/11/20 21:00 02/17/20 08:19 Protonix PO Not Given BID SANDOR Sodium Chloride 10 ml 02/15/20 09:00 02/17/20 08:21 Flush - Normal Saline IVF 10 ml Q12HR SANDOR Administration - Exam Eye: PERRL, anicteric sclera Heart: RRR, no murmur, no gallops, no rubs, normal peripheral pulses Respiratory: CTAB (+ coarse breath sounds) Gastrointestinal: soft, non-tender, non-distended, normal bowel sounds, no palpable masses Extremities: no cyanosis, no edema Hosp A/P (1) Acute respiratory failure with hypoxia Code(s): J96.01 - ACUTE RESPIRATORY FAILURE WITH HYPOXIA Status: Acute (2) Esophageal cancer Status: Chronic (3) CAD (coronary artery disease) Code(s): I25.10 - ATHSCL HEART DISEASE OF [place] CORONARY ARTERY W/O ANG PCTRS Status: Chronic (4) Hypertension Code(s): I10 - ESSENTIAL (PRIMARY) HYPERTENSION Status: Acute (5) Atrial fibrillation Code(s): I48.91 - UNSPECIFIED ATRIAL FIBRILLATION Status: Acute (6) Leukocytosis Code(s): D72.829 - ELEVATED WHITE BLOOD CELL COUNT, UNSPECIFIED Status: Acute - Plan * Worsening respiratory failure- he continues to worsen. He is now DNR. It is my understanding that family plans to convert his care to comfort care only * HTN- blood pressure has been on the lower side. He is essentially unable to take anything by mouth- will hold his home medications, and treat with prn medication for now * AFIB- his heart rate is variable, but regular- will monitor- patient is not on anticoagulation * DM- blood glucose is elevated- continue to titrate insulin * CAD- stable * Esophageal cancer- this is advanced. * Plan is for possible withdrawal of care later today
--- NOTE | 2020-02-17 16:00 | PRG ---
DATE OF SERVICE: 02/17/2020 SUBJECTIVE: Shukri Maddox is extremely labored on BiPAP this morning. Family was planning to come in and take BiPAP off and stay at the bedside until he passed. It is not anticipated that he would last more than about 15 minutes once support was withdrawn. OBJECTIVE: His exam is otherwise unchanged. IMPRESSION: 1. Metastatic esophageal cancer. His pleural fluid cytology came back positive. 2. Healthcare-associated pneumonia, probably associated with some aspiration. PLAN: Comfort care. Job ID: [id number]
--- NOTE | 2020-02-17 19:22 | DIS ---
DATE OF ADMISSION: 02/11/2020 DATE OF DISCHARGE: 02/17/2020 DIAGNOSES: 1. Acute respiratory failure with hypoxemia. 2. Stage IV esophageal carcinoma. 3. Malignant pleural effusion. 4. Healthcare associated pneumonia. 5. Diastolic dysfunction. 6. Coronary artery disease. 7. Hypertension. 8. Atrial fibrillation. 9. Severe dysphagia. CODE STATUS: DNAR. ALLERGIES: NO KNOWN DRUG ALLERGIES. IMAGING DONE DURING THE HOSPITAL STAY: The patient had a CT angiogram of the chest, which demonstrated no evidence of PE. There was a moderate right and small left pleural effusion. There was some reticular nodular appearance involving the mesentery worrisome for carcinomatosis. There was moderate ascites. There was a persistent consolidation in the right lower lobe. The patient had an echocardiogram this demonstrated an ejection fraction estimated at 55% to 60%. There is mildly dilated left atrium. There is an E to A flow reversal noted suggestive of diastolic dysfunction, and the aortic valves were somewhat thickened. The patient had a repeat CT angiogram on 02/15/2020 and this showed very small nonocclusive thrombus involving the lingula and parenchymal changes and pleural effusions as described previously. The patient had a thoracentesis with removal of 2 L of fluid and the fluid was bloody and exudative, and cytology returned showing evidence positive for malignancy. HOSPITAL COURSE: Mr. Maddox is an 79-year-old gentleman, who presented to the emergency room with complaints of shortness of breath. He had evidence of systemic inflammatory response, but no obvious source of infection. However, he was started on empiric antibiotics and supplemental oxygen. After a few days, his respiratory status began to deteriorate. Pulmonology was consulted. It was found that he had worsening of his right pleural effusion. He underwent thoracentesis and he had some temporary relief of his symptoms with this. His antibiotic spectrum or coverage was broadened. However, despite these measures, the patient began to deteriorate once again. He became more tachypneic and hypoxic. A repeat CT scan was done, which showed a small pulmonary embolism. However, lower extremity venous Dopplers were negative and it was felt that it would be more dangerous to anticoagulate given the bloody exudative malignant effusion. The patient became dependent on BiPAP and had wished not to be intubated. After several days on BiPAP, he was found to be not weanable from this. We met with the family and the patient's sons and the decision was made to remove BiPAP. He wanted to have comfort care only. The patient was alert and oriented when he made this decision. Once the BiPAP was removed, the patient comfortably with family at the bedside likely as a result of complications of stage IV adenocarcinoma of the esophagus and hospital-acquired pneumonia. Job ID: [id number]
--- NOTE | 2020-02-22 12:08 | PQF ---
CLINICAL DOCUMENTATION CLARIFICATION FORM: Dear : __Geovani Fernandez Date / Time: 22/02/2020 Please exercise your independent, professional judgment in responding to the clarification form. Clinical indicators are provided on the bottom of this form for your review Please check appropriate box(es): [ X ] Aspiration Pneumonia [ ] Hospital associated Pneumonia [ ] Pneumonia of unknown etiology [ ] Other diagnosis [ ] Unable to determine KEATo be completed by CDI/Coding staff for physician review: Present Clinical Indicators - Signs / Symptoms / Labs Results and Location in Medical Record [ x] Healthcare-associated pneumonia, probably associated with some aspiration Progress note, 02/16, ByMary George MD [ x ] Healthcare associated penumonia DS, 02/16, By.Geovani Fernandez MD [ x ] Consolidation in the right lower lobe with appearance of partial collapse of the right middle lobe H&P, 02/10, By. Theron Garcia MD [x ] Severe Dysphagia DS, 02/16, By.Geovani Fernandez MD [ x] Tachypenic and hypoxia DS, 02/16, By.Geovani Fernandez MD Present Risk Factors Results and Location in Medical Record [ x ] Acute respiratory failure Hospital PN, 02/13, By. Geovani Fernandez MD [ x] Stage IV esophageal carcinoma DS, 02/16, ByShivani Fernandez MD Present Treatments Results and Location in Medical Record [ x] BiPAP Vital signs, 02/16 [ x ] Vancomycin.IV MAR, 02/10 [ ]x Chest X-ray 02/14, By Catina Tam MD [facility] [employer] Signature: _Deandre Rangel Phone #: __[phone] Date/Time: _02/22/2020 This is a permanent part of the Medical Record [facility]
--- NOTE | 2020-02-22 13:11 | CT ---
CT ANGIOGRAM THORAX WITH IV CONTRAST AND 3-D RECONSTRUCTIONS CT abdomen and pelvis with IV contrast CLINICAL INDICATION: Shortness of breath. COMPARISON: 02/10/2020 CT angiogram thorax:: Pulmonary arteries: No filling defects are seen in the pulmonary arteries to suggest a pulmonary embo nazario. Aorta: Vascular calcifications and atherosclerotic plaque is seen in the thoracic aorta and at the or igin of the great vessels. Lungs: Moderately large right pleural effusion and small left pleural effusions are again seen. Conso lidation is seen bilaterally probably due to associated passive atelectasis. However, there is additional area of consolidation seen involving the right middle lobe which appears to represent part ial collapse of the right middle lobe as opposed to consolidation secondary to pneumonia. Mild emphysematous changes are seen bilaterally. Calcified granuloma is seen in the right lower lobe. Mediastinum: A right subclavian Mediport catheter is noted in place as well as right-sided PICC line with the tip of each of these catheters determine in the distal SVC. Calcified right hilar lymph nodes are seen. No enlarged mediastinal lymph nodes are appreciated. Trace pericardial effusion is pr esent. Hiatal hernia is again present. Wall thickening of the distal esophagus and cardia of the stomach is similar to the recent study but has improved compared to study on 09/09/2019. No enlarged lymph nodes are seen by CT size criteria. Osseous structures: Remote right-sided rib fractures are again seen. Chest wall: No abnormality visualized. CT abdomen and pelvis: Vessels: Vascular calcifications are seen involving the abdominal aorta and iliac arteries. An aortic stent graft is noted in place with aortic sac diameter unchanged from one day ago. Abdomen: Portal vein:Not opacified. Gallbladder: Gallbladder calculus is again visualized. Liver: Not well evaluated due to phase of contrast enhancement as the CT abdomen was obtained with de layed phase of imaging. However no focal hepatic lesion is identified. Spleen: Grossly normal appearance for phase of enhancement. Pancreas: Grossly normal in appearance for phase of enhancement. Adrenals: within normal limits. Kidneys: Bilateral renal cysts again present. Bowel: Suggested gastric wall thickening on the prior exam is less well delineated on this exam as th e stomach is decompressed, and no oral contrast was administered. Residual contrast is seen within the colon with evidence of colonic diverticulosis. There is suggested thickening in the region of the sigmoid colon, this is likely secondary to incomplete distention and the diverticular disease. Loops of small bowel are normal in caliber. Appendix: Not definitely visualized. Peritoneum: Again noted is moderate amount of ascites. There is edema seen within the mesentery with reticulonodular at the again seen involving the omentum similar to prior exam one day ago. Mesentery and Retroperitoneum: No enlarged mesenteric or retroperitoneal lymph nodes. Abdominal Wall: within normal limits. Pelvis: Reproductive Organs: No pelvic masses. Pelvis within normal limits. Bladder: Incompletely distended. Menendez urinary bladder do appear mildly thickened. This could be rela brenda to the nondistended nature of the urinary bladder. Cystitis would be difficult to entirely exclude. Bones: Degenerative changes are seen in the spine. There is slight retrolisthesis of L4 and L5. Promi nent endplate degenerative changes are seen at the L1-2 level. No suspicious lytic or sclerotic osseous lesions are appreciated. IMPRESSION: 1. No CT evidence of a pulmonary embolus. 2. Moderate right and small left pleural effusions similar in size to prior exam. 3. Reticulonodular appearance involving the mesentery of the anterior abdomen again worrisome for car cinomatosis. Moderate ascites is present. 4. Thickening involving the distal esophagus and cardia of the stomach less well evaluated on this ex am due to lack of oral contrast. 5. Persistent area of consolidation the right lower lobe which has the appearance of partial collapse of the right middle lobe and likely attributable to volume loss. 6. Findings within the chest, abdomen, and pelvis are overall unchanged when compared to prior study one day ago. Transcribed Date/Time: 02/22/2020 1:11 PM
--- NOTE | 2020-02-26 08:20 | PQF ---
CLINICAL DOCUMENTATION CLARIFICATION FORM: Dear : Geovani Fernandez Date / Time: ____02/23/2020___ Please exercise your independent, professional judgment in responding to the clarification form. Clinical indicators are provided on the bottom of this form for your review Please check appropriate box(es) to clarify if the following diagnosis has been ruled in our ruled out: Sepsis [ X ] Ruled in diagnosis [ X] Continue to treat [ ] Resolved [ ] Ruled out diagnosis [ ] Improving [ ] Cannot rule out diagnosis [ ] Other diagnosis [ ] Unable to determine Physician Signature: Date/Time: For continuity of documentation, please document condition throughout progress notes and discharge summary. Thank You To be completed by CDI/Coding staff for physician review: w Present w Clinical Indicators - Signs / Symptoms / Labs w Results and Location in Medical Record w [ x] w Sepsis concerning for pulmonary source w H&P, 02/10, Theron Garcia MD w [ x] w Temp: 98.5, RR:25, Pulse: 101 w H&P, 02/10, Theron Garcia MD w [ x] w He had evidence of systemic inflammatory response, but no obvious source if infection w DS, 02/16, Geovani Fernandez MD w [ x] w He became more tachypneic and hypoxic w DS, 02/16, Geovani Fernandez MD w Present w Risk Factors w Results and Location in Medical Record w [ x] w Aspiration pneumonia w Query response 02/23, Geovani Fernandez MD w [ x] w Acute respiratory failure with hypoxia w Hospital , 02/16, Geovani Fernandez MD w w w w w w w Present w Treatments w Results and Location in Medical Record w [ x] w Cefepime.IV w OCT, 02/10 w [ x] w Vancomycin.IV w OCT, 02/10 w w w w w w [facility] Signature: Deandre Rangel Phone #: [phone] Date/Time:_ 02/26/2020 This is a permanent part of the Medical Record [facility]
--- NOTE | 2020-03-01 16:02 | EKG ---
Test Reason : Blood Pressure : / mmHG Vent. Rate : 102 BPM Atrial Rate : 102 BPM P-R Int : 000 ms QRS Dur : 064 ms QT Int : 296 ms P-R-T Axes : 000 041 045 degrees QTc Int : 385 ms Normal sinus rhythm Nonspecific ST abnormality Abnormal ECG Confirmed by CODY TEE, RUIZ ([id number]), acquisitions editor ENRIQUE LIN ([id number]) on 03/01/2020 4:01:49 PM Referred By: Confirmed By:RUIZ ROSS MD
== END 2020-02-17 11:59 | disposition expired | DRG 871 ==
LOC: ERS 10:02 → 2SW 13:14 → 2NO 21:25 → ONC 02-12 22:40 → CCU 02-13 11:10 → T4-B 02-14 12:11 → IMCU/EMU 02-15 03:15 → CCU 02-15 10:52
PROVIDERS: ADMIT Emergency Medicine; ATTEND Emergency Medicine
PROC: 0W993ZZ Drainage of Right Pleural Cavity, Percutaneous Approach (ICD-10-PCS; principal; 2020-02-13)
PROC: 5A09457 Assistance with Respiratory Ventilation, 24-96 Consecutive Hours, Continuous Positive Airway Pressure (ICD-10-PCS; 2020-02-15)
DX: A41.9 Sepsis, unspecified organism (principal); J69.0 Pneumonitis due to inhalation of food and vomit; J96.01 Acute respiratory failure with hypoxia; C15.9 Malignant neoplasm of esophagus, unspecified; J91.0 Malignant pleural effusion; R18.8 Other ascites; C16.9 Malignant neoplasm of stomach, unspecified; C78.6 Secondary malignant neoplasm of retroperitoneum and peritoneum; R65.10 Systemic inflammatory response syndrome (SIRS) of non-infectious origin without acute organ dysfunction; Z51.5 Encounter for palliative care; Z66 Do not resuscitate; Z20.828 Contact with and (suspected) exposure to other viral communicable diseases; R13.10 Dysphagia, unspecified; I25.10 Atherosclerotic heart disease of native coronary artery without angina pectoris; I73.9 Peripheral vascular disease, unspecified; I10 Essential (primary) hypertension; I48.91 Unspecified atrial fibrillation; D72.828 Other elevated white blood cell count; Z79.01 Long term (current) use of anticoagulants; Z87.891 Personal history of nicotine dependence
CPT/HCPCS: 36415; 36416; 71045; 71260; 71275; 74177; 80048; 80053; 80202; 81003; 81015; 82150; 82550; 82553; 82805; 82945; 83605; 83615; 83690; 83735; 83880; 83986; 84100; 84134; 84157; 84478; 84484; 85025; 85060; 85379; 86140; 87040; 87070; 87205; 88112; 88305; 89051; 93005; 93010; 93306; 93970; 94640; 94660; 96361; 96365; 96366; 96367; A4217; J0692; J1450; J1650; J1815; J1940; J2060; J2270; J2920; J2930; J3370; J3475; J3480; J3490; J7050; J7611; J7620; Q9967; U0002